=== PATIENT | female | born 1955 | race Caucasian/White ===

== ENCOUNTER 2016-10-29 06:54 | Observation (INO) ==
[2016-10-29] MEDS ORDERED: 0.9 % Sodium Chloride 1,000 ML IVC ONE (07:14)
[2016-10-29] MEDS ORDERED: *HR* LORazepam 2 MG/ML VIAL IVP ONE (07:14)
[2016-10-29] MEDS ORDERED: Ipratropium/Albuterol Neb 3 ML IH ONE (07:14)
[2016-10-29] MEDS ORDERED: Aspirin 81 MG TAB.CHEW PO STA (07:14)
[2016-10-29] MEDS ORDERED: Nitroglycerin 0.4 MG TAB.SUBL SL ONE (07:16)
[2016-10-29 07:22] LABS: Basophils # 0.1 K/mcL (0.0-0.2); Basophils % 0.9 %; Eosinophils # 0.3 K/mcL (0.0-0.6); Eosinophils % 3.2 %; Hematocrit 44.5 % (35.3-44.9); Hemoglobin 15.2 g/dL (11.5-15.4); Immature Granulocytes % 0.2 % (0-4); Lymphocytes # 1.7 K/mcL (0.6-4.6); Lymphocytes % 20.7 %; Mean Corpuscular HGB Conc 34.2 g/dL (31.6-35.5); Mean Corpuscular Volume 93.7 fL (83.0-100.0); Monocytes # 0.7 K/mcL (0.0-1.3); Neutrophils # 5.5 K/mcL (1.6-8.9); Platelet Count 355 K/mcL (140-400); Red Blood Count 4.75 M/mcL (3.82-4.97); Red Cell Distribution Width 12.6 % (11.5-14.5)
--- NOTE | 2016-10-29 07:31 | Emergency Department Note ---
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 Denies: fever, wheezing, orthopnea, lower extremity pain, palpitations, hemoptysis, diaphoresis, nausea/ vomiting, syncope, abdominal pain, rash Treatment prior to arrival: none Cough present: Yes Cough Description: Voluntary, Productive Cough Frequency: Intermittent Sputum production: Yes Sputum Amount: Scant Sputum Color: Yellow - Related Data Home oxygen amount: none Home Medications Medication Instructions Recorded Confirmed Clopidogrel [Plavix] 75 mg PO DAILY 10/17/15 10/29/16 Acetaminophen [Tylenol] 500 - 1,000 mg PO BID 10/29/16 10/29/16 Allergies Allergy/AdvReac Type Severity Reaction Status Date / Time No Known Allergies Allergy Verified 10/29/16 06:56 All systems ED: reviewed and negative except as stated. Constitutional: Denies: fever, chills, weakness, night sweats ENT ED: Reports: throat pain ("feels dry and strange like I'm going to swallow my tongue"). Denies: dental pain, congestion, dysphagia Cardiovascular: Reports: as per HPI, chest pain, dyspnea on exertion. Denies: palpitations, orthopnea, edema, syncope Respiratory: Reports: as per HPI, cough, dyspnea, sputum production. Denies: wheezes, hemoptysis, stridor Gastrointestinal: Denies: abdominal pain, nausea, vomiting, diarrhea Genitourinary: Denies: dysuria Musculoskeletal: Denies: back pain, neck pain, arthralgia Integumentary: Denies: rash, lesions Neurological: Reports: weakness ("weak all over"), numbness, paresthesias (left hand - this morning - gone now). Denies: headache Psychiatric: Reports: anxiety ("always") Endocrine: Denies: heat or cold intolerance, polydipsia, polyuria Hematological/Lymphatic: Reports: easy bleeding (on plavix ), easy bruising Allergic/Immunologic: Denies: facial swelling, urticaria, itchy eyes Past Medical History - Past Medical History Attestation: Yes The following information was validated with the patient. Source: patient, obtained from family Medical history: Reports: hyperlipidemia, peripheral artery disease, other Surgical history: Reports: cholecystectomy, hysterectomy, other, LE stent (s) Psychiatric history: Reports: anxiety HANDKERCHIEF FOLDER history: Reports: no HANDKERCHIEF FOLDER history LMP comments: none - Social History Smoking Status: Current every day smoker Smokeless Tobacco Status: No Alcohol use: Reports: none Drug use: Reports: none Physical Exam - General Limitations: no limitations General appearance: alert, anxious - Head Head exam: normocephalic, other (singed eyebrows - left worse than right) - Eye Eye exam: Present: normal appearance, PERRL, other (singed eyebrows). Absent: scleral icterus, conjunctival injection, periorbital swelling - ENT ENT exam: mucous membranes dry (otherwise oralpharynx is normal) - Neck Neck exam: Present: normal inspection, full ROM, trachea midline. Absent: tenderness, meningismus, lymphadenopathy, thyromegaly - Chest Chest inspection: Present: normal inspection, symmetric chest wall rise - Respiratory Respiratory exam: Present: normal lung sounds bilaterally, respiratory distress (mild tachypnea), accessory muscle use. Absent: wheezes, stridor, prolonged expiratory phase - Cardiovascular Cardiovascular exam: Present: regular rate, normal rhythm, normal heart sounds. Absent: systolic murmur, diastolic murmur - Abdominal Exam Abdominal exam: Present: soft, Non-Tender. Absent: distention, guarding, rebound, rigidity - Extremities Exam Extremities exam: Present: normal inspection, full ROM, normal capillary refill. Absent: tenderness, pedal edema - Back Exam Back exam: Present: normal inspection, full ROM. Absent: tenderness - Neurological Exam Neurological exam: Present: alert, oriented X3, CN II-XII intact, normal gait - Psychiatric Psychiatric exam: Present: normal affect, anxious - Skin Skin exam: Present: warm, dry, intact, normal color Course Course Narrative: Patient presents with family member for evaluation of trouble breathing and chest pain. She is extremely anxious. She states that she has had a cough and mild shortness of breath for a couple of days but this morning upon waking she had significant trouble breathing and pain in the right upper chest and right side of neck. She also complains of numbness in left hand - now resolved, pain across chest into left shoulder, and a "hot feelinging in ears and side of head. " Patient's x-ray is normal. Troponin is normal. EKG is normal. She has not had a heart catheterization or stress test in the last five years. In fact, she denies ever having one and I cannot find one in our EMR. Her chest pain is exertional and associated with dyspnea. Her d-dimer is elevated, however, she has had elevated sugars in the past in the s and had a CTA done in November, which was normal. My suspicion for PE is very low. We will discuss the case with the hospitalist for admission for rule out ACS. Vital Signs Temperature 97.7 F 10/29/16 06:56 Pulse Rate 94 10/29/16 06:56 Respiratory Rate 24 10/29/16 06:56 Blood Pressure 163/79 10/29/16 06:56 O2 Sat by Pulse Oximetry 98 10/29/16 06:56 Temperature 98.1 F 10/29/16 18:52 Pulse Rate 72 10/29/16 18:52 Respiratory Rate 16 10/29/16 18:52 Blood Pressure 106/69 10/29/16 18:52 O2 Sat by Pulse Oximetry 96 10/29/16 18:52 Oxygen Delivery Oxygen Delivery Room Air Shortness of Breath/Dyspnea - Lab Data Result diagrams: 10/29/16 07:13 10/29/16 07:13 Lab Results 10/29/16 10/29/16 10/29/16 Range/Units 07:13 07:13 07:13 WBC 8.2 (4.3-11.1) K/mcL RBC 4.75 (3.82-4.97) M/mcL Hgb 15.2 (11.5-15.4) g/dL Hct 44.5 (35.3-44.9) % MCV 93.7 (83.0-100.0) fL MCH 32.0 (28.0-33.3) pg MCHC 34.2 (31.6-35.5) g/dL RDW 12.6 (11.5-14.5) % Plt Count 355 (140-400) K/mcL MPV 10.0 (9.4-12.4) fL Immature Gran % 0.2 (0-4) % Seg Neutrophils % 67.0 % Lymphocytes % 20.7 % Monocytes % 8.0 % Eosinophils % 3.2 % Basophils % 0.9 % Neutrophils # 5.5 (1.6-8.9) K/mcL Lymphocytes # 1.7 (0.6-4.6) K/mcL Monocytes # 0.7 (0.0-1.3) K/mcL Eosinophils # 0.3 (0.0-0.6) K/mcL Basophils # 0.1 (0.0-0.2) K/mcL PT 11.7 (9.4-12.1) Seconds INR 1.1 APTT 30.0 (26.0-36.0) Seconds D-Dimer 745 H (0-500) ng/mLFEU Sodium 142 (136-145) mEq/L Potassium 4.0 (3.5-4.5) mEq/L Chloride 110 H (98-109) mEq/L Carbon Dioxide 25 (19-29) mEq/L BUN 20 (7-20) mg/dL Creatinine 0.71 (0.57-1.11) mg/dL Est GFR ( Amer) > 60 (> 60) Est GFR (Non-Af Amer) > 60 (> 60) BUN/Creatinine Ratio 28 H (6-26) Glucose 114 H (70-99) mg/dL Est Mean Plasma Glucose mg/dl Hemoglobin A1c ( - 5.6) % Calculated Osmolality 297 (280-300) Calcium 9.7 (8.6-10.8) mg/dL Phosphorus 3.7 (2.3-4.7) mg/dL Magnesium 2.0 (1.6-2.6) mg/dL Total Bilirubin 0.6 (0.2-1.2) mg/dL Direct Bilirubin 0.2 (0.0-0.5) mg/dL Indirect Bilirubin 0.4 (0.0-1.2) mg/dL AST 26 (5-34) Units/L ALT 24 (0-55) Units/L Alkaline Phosphatase 114 (38-126) Units/L Troponin I (0-0.03) ng/mL B-Natriuretic Peptide (0-100) pg/mL Serum Total Protein 7.4 (6.0-8.3) g/dL Albumin 3.6 (3.5-5.0) g/dL Globulin 3.8 H (2.4-3.5) g/dL Albumin/Globulin Ratio 0.9 L (1.1-2.2) Triglycerides 105 (< 150) mg/dL Cholesterol 207 H (< 200) mg/dL LDL Cholesterol, Calc 142 H (0-99) mg/dL VLDL Cholesterol, Calc 21 (< 31) mg/dL HDL Cholesterol 44 (40-59) mg/dL Cholesterol/HDL Ratio 4.7 (0-4.9) TSH 1.659 (0.350-4.840) mcIU/mL Urine Color (Yellow) Urine Clarity (Clear) Urine pH (5.0-8.0) pH Units Ur Specific [place] (1.010-1.025) Urine Protein (Neg-Trace) mg/dL Urine Glucose (UA) (Normal) mg/dL Urine Ketones (Negative) mg/dL Urine Blood (Negative) Urine Nitrite (Negative) Urine Bilirubin (Negative) Urine Urobilinogen (Normal) mg/dL Ur Leukocyte Esterase (Negative) Ur Culture Indicated? (NO) Urine Opiates Screen (Zlejeh=918) ng/mL Ur Barbiturates Screen (Usscij=796) ng/mL Ur Phencyclidine Scrn (Cutoff=25) ng/mL Ur Amphetamines Screen (Zlbuae=9196) ng/mL U Benzodiazepines Scrn (Avaueg=424) ng/mL Urine Cocaine Screen (Cutoff= 300) ng/mL U Marijuana (THC) Screen (Cutoff = 50) ng/mL 10/29/16 10/29/16 10/29/16 Range/Units 07:13 07:13 07:13 WBC (4.3-11.1) K/mcL RBC (3.82-4.97) M/mcL Hgb (11.5-15.4) g/dL Hct (35.3-44.9) % MCV (83.0-100.0) fL MCH (28.0-33.3) pg MCHC (31.6-35.5) g/dL RDW (11.5-14.5) % Plt Count (140-400) K/mcL MPV (9.4-12.4) fL Immature Gran % (0-4) % Seg Neutrophils % % Lymphocytes % % Monocytes % % Eosinophils % % Basophils % % Neutrophils # (1.6-8.9) K/mcL Lymphocytes # (0.6-4.6) K/mcL Monocytes # (0.0-1.3) K/mcL Eosinophils # (0.0-0.6) K/mcL Basophils # (0.0-0.2) K/mcL PT (9.4-12.1) Seconds INR APTT (26.0-36.0) Seconds D-Dimer (0-500) ng/mLFEU Sodium (136-145) mEq/L Potassium (3.5-4.5) mEq/L Chloride (98-109) mEq/L Carbon Dioxide (19-29) mEq/L BUN (7-20) mg/dL Creatinine (0.57-1.11) mg/dL Est GFR ( Amer) (> 60) Est GFR (Non-Af Amer) (> 60) BUN/Creatinine Ratio (6-26) Glucose (70-99) mg/dL Est Mean Plasma Glucose 114 mg/dl Hemoglobin A1c 5.6 ( - 5.6) % Calculated Osmolality (280-300) Calcium (8.6-10.8) mg/dL Phosphorus (2.3-4.7) mg/dL Magnesium (1.6-2.6) mg/dL Total Bilirubin (0.2-1.2) mg/dL Direct Bilirubin (0.0-0.5) mg/dL Indirect Bilirubin (0.0-1.2) mg/dL AST (5-34) Units/L ALT (0-55) Units/L Alkaline Phosphatase (38-126) Units/L Troponin I 0.01 (0-0.03) ng/mL B-Natriuretic Peptide 13 (0-100) pg/mL Serum Total Protein (6.0-8.3) g/dL Albumin (3.5-5.0) g/dL Globulin (2.4-3.5) g/dL Albumin/Globulin Ratio (1.1-2.2) Triglycerides (< 150) mg/dL Cholesterol (< 200) mg/dL LDL Cholesterol, Calc (0-99) mg/dL VLDL Cholesterol, Calc (< 31) mg/dL HDL Cholesterol (40-59) mg/dL Cholesterol/HDL Ratio (0-4.9) TSH (0.350-4.840) mcIU/mL Urine Color (Yellow) Urine Clarity (Clear) Urine pH (5.0-8.0) pH Units Ur Specific [place] (1.010-1.025) Urine Protein (Neg-Trace) mg/dL Urine Glucose (UA) (Normal) mg/dL Urine Ketones (Negative) mg/dL Urine Blood (Negative) Urine Nitrite (Negative) Urine Bilirubin (Negative) Urine Urobilinogen (Normal) mg/dL Ur Leukocyte Esterase (Negative) Ur Culture Indicated? (NO) Urine Opiates Screen (Vzlfya=858) ng/mL Ur Barbiturates Screen (Rehfah=711) ng/mL Ur Phencyclidine Scrn (Cutoff=25) ng/mL Ur Amphetamines Screen (Akfflw=7826) ng/mL U Benzodiazepines Scrn (Ehhupx=130) ng/mL Urine Cocaine Screen (Cutoff= 300) ng/mL U Marijuana (THC) Screen (Cutoff = 50) ng/mL 10/29/16 10/29/16 Range/Units 07:55 07:55 WBC (4.3-11.1) K/mcL RBC (3.82-4.97) M/mcL Hgb (11.5-15.4) g/dL Hct (35.3-44.9) % MCV (83.0-100.0) fL MCH (28.0-33.3) pg MCHC (31.6-35.5) g/dL RDW (11.5-14.5) % Plt Count (140-400) K/mcL MPV (9.4-12.4) fL Immature Gran % (0-4) % Seg Neutrophils % % Lymphocytes % % Monocytes % % Eosinophils % % Basophils % % Neutrophils # (1.6-8.9) K/mcL Lymphocytes # (0.6-4.6) K/mcL Monocytes # (0.0-1.3) K/mcL Eosinophils # (0.0-0.6) K/mcL Basophils # (0.0-0.2) K/mcL PT (9.4-12.1) Seconds INR APTT (26.0-36.0) Seconds D-Dimer (0-500) ng/mLFEU Sodium (136-145) mEq/L Potassium (3.5-4.5) mEq/L Chloride (98-109) mEq/L Carbon Dioxide (19-29) mEq/L BUN (7-20) mg/dL Creatinine (0.57-1.11) mg/dL Est GFR ( Amer) (> 60) Est GFR (Non-Af Amer) (> 60) BUN/Creatinine Ratio (6-26) Glucose (70-99) mg/dL Est Mean Plasma Glucose mg/dl Hemoglobin A1c ( - 5.6) % Calculated Osmolality (280-300) Calcium (8.6-10.8) mg/dL Phosphorus (2.3-4.7) mg/dL Magnesium (1.6-2.6) mg/dL Total Bilirubin (0.2-1.2) mg/dL Direct Bilirubin (0.0-0.5) mg/dL Indirect Bilirubin (0.0-1.2) mg/dL AST (5-34) Units/L ALT (0-55) Units/L Alkaline Phosphatase (38-126) Units/L Troponin I (0-0.03) ng/mL B-Natriuretic Peptide (0-100) pg/mL Serum Total Protein (6.0-8.3) g/dL Albumin (3.5-5.0) g/dL Globulin (2.4-3.5) g/dL Albumin/Globulin Ratio (1.1-2.2) Triglycerides (< 150) mg/dL Cholesterol (< 200) mg/dL LDL Cholesterol, Calc (0-99) mg/dL VLDL Cholesterol, Calc (< 31) mg/dL HDL Cholesterol (40-59) mg/dL Cholesterol/HDL Ratio (0-4.9) TSH (0.350-4.840) mcIU/mL Urine Color Yellow (Yellow) Urine Clarity Clear (Clear) Urine pH 5.5 (5.0-8.0) pH Units Ur Specific [place] 1.020 (1.010-1.025) Urine Protein Negative (Neg-Trace) mg/dL Urine Glucose (UA) Normal (Normal) mg/dL Urine Ketones Negative (Negative) mg/dL Urine Blood Negative (Negative) Urine Nitrite Negative (Negative) Urine Bilirubin Negative (Negative) Urine Urobilinogen Normal (Normal) mg/dL Ur Leukocyte Esterase Negative (Negative) Ur Culture Indicated? NO (NO) Urine Opiates Screen Negative (Iurohl=406) ng/mL Ur Barbiturates Screen Negative (Yfkeqx=089) ng/mL Ur Phencyclidine Scrn Negative (Cutoff=25) ng/mL Ur Amphetamines Screen Negative (Sqiuub=8987) ng/mL U Benzodiazepines Scrn Negative (Awqqkf=924) ng/mL Urine Cocaine Screen Negative (Cutoff= 300) ng/mL U Marijuana (THC) Screen Negative (Cutoff = 50) ng/mL
[2016-10-29 07:33] LABS: INR 1.1; Prothrombin Time 11.7 Seconds (9.4-12.1)
[2016-10-29 07:36] LABS: Alanine Aminotransferase 24 Units/L (0-55); Albumin 3.6 g/dL (3.5-5.0); Albumin/Globulin Ratio 0.9 (1.1-2.2); Alkaline Phosphatase 114 Units/L (38-126); Aspartate Amino Transferase 26 Units/L (5-34); BUN/Creatinine Ratio 28 (6-26); Bilirubin,Direct 0.2 mg/dL (0.0-0.5); Bilirubin,Indirect 0.4 mg/dL (0.0-1.2); Bilirubin,Total 0.6 mg/dL (0.2-1.2); Blood Urea Nitrogen 20 mg/dL (7-20); Calcium 9.7 mg/dL (8.6-10.8); Carbon Dioxide 25 mEq/L (19-29); Chloride 110 mEq/L (98-109); Globulin 3.8 g/dL (2.4-3.5); Glucose 114 mg/dL (70-99); Osmolality,Calculated 297 (280-300); Sodium 142 mEq/L (136-145); Total Protein 7.4 g/dL (6.0-8.3); eGFR For African Americans > 60 (> 60); eGFR For Non-African Americans > 60 (> 60)
[2016-10-29 08:04] LABS: Bilirubin,Urine Negative (Negative); Blood,Urine Negative (Negative); Clarity,Urine Clear (Clear); Color,Urine Yellow (Yellow); Glucose,Urine (UA) Normal (Normal); Ketones,Urine Negative (Negative); Leukocyte Esterase,Urine Negative (Negative); Nitrite,Urine Negative (Negative); PH,Urine 5.5 pH Units (5.0-8.0); Protein,Urine Negative (Neg-Trace); Urobilinogen,Urine Normal (Normal)
[2016-10-29 08:33] LABS: Amphetamine Screen,Urine Negative ng/mL (Cutoff=1000); Barbiturate Screen,Urine Negative ng/mL (Cutoff=200); Benzodiazepines Screen,Urine Negative ng/mL (Cutoff=200); Cannabinoid Screen,Urine Negative ng/mL (Cutoff = 50); Cocaine Screen,Urine Negative ng/mL (Cutoff= 300); Opiate Screen,Urine Negative ng/mL (Cutoff=300); Phencyclidine Screen,Urine Negative ng/mL (Cutoff=25)
--- NOTE | 2016-10-29 08:52 | Emergency Department Note ---
Disposition Clinical Impression: Acute exacerbation of chronic obstructive airways disease Disposition: Admitted As Inpatient Condition: Fair Referrals: NO,PCP [Non-Partnered Physician] - Forms: ED Satisfaction Letter General Adult HPI - General Chief complaint: ED Shortness of Breath/Dyspnea Stated complaint: luz/pain all over Source: patient, family Mode of arrival: private vehicle Limitations: no limitations Nursing Notes Reviewed: Yes Vital Signs Reviewed: Yes - History of Present Illness Pain Scale: 8 - Related Data Home Medications Medication Instructions Recorded Confirmed Clopidogrel [Plavix] 75 mg PO DAILY 10/17/15 10/29/16 Acetaminophen [Tylenol] 500 - 1,000 mg PO BID 10/29/16 10/29/16 Allergies Allergy/AdvReac Type Severity Reaction Status Date / Time No Known Allergies Allergy Verified 10/29/16 06:56 Constitutional: Denies: fever, chills, weakness, night sweats ENT ED: Reports: throat pain ("feels dry and strange like I'm going to swallow my tongue"). Denies: dental pain, congestion, dysphagia Cardiovascular: Reports: as per HPI, chest pain, dyspnea on exertion. Denies: palpitations, orthopnea, edema, syncope Respiratory: Reports: as per HPI, cough, dyspnea, sputum production. Denies: wheezes, hemoptysis, stridor Gastrointestinal: Denies: abdominal pain, nausea, vomiting, diarrhea Genitourinary: Denies: dysuria Musculoskeletal: Denies: back pain, neck pain, arthralgia Integumentary: Denies: rash, lesions Neurological: Reports: weakness ("weak all over"), numbness, paresthesias (left hand - this morning - gone now). Denies: headache Psychiatric: Reports: anxiety ("always") Endocrine: Denies: heat or cold intolerance, polydipsia, polyuria Hematological/Lymphatic: Reports: easy bleeding (on plavix ), easy bruising Allergic/Immunologic: Denies: facial swelling, urticaria, itchy eyes Past Medical History - Past Medical History Medical history: Reports: hyperlipidemia, peripheral artery disease, other Surgical history: Reports: cholecystectomy, hysterectomy, other, LE stent (s) Psychiatric history: Reports: anxiety NAIL PROFESSIONAL history: Reports: no NAIL PROFESSIONAL history - Social History Smoking Status: Current every day smoker Smokeless Tobacco Status: No Alcohol use: Reports: none Drug use: Reports: none Physical Exam - General Limitations: no limitations General appearance: alert, anxious Course Vital Signs Temperature 97.7 F 10/29/16 06:56 Pulse Rate 94 10/29/16 06:56 Respiratory Rate 24 10/29/16 06:56 Blood Pressure 163/79 10/29/16 06:56 O2 Sat by Pulse Oximetry 98 10/29/16 06:56 Temperature 97.7 F 10/29/16 06:56 Pulse Rate 75 10/29/16 09:13 Respiratory Rate 22 10/29/16 09:13 Blood Pressure 124/71 10/29/16 09:13 O2 Sat by Pulse Oximetry 97 10/29/16 09:13 Oxygen Delivery Oxygen Delivery Room Air Medical Decision Making - MDM Narrative Medical decision making narrative: I examined this patient and my medical decision-making was reviewed with the PATIENT COMPANION/PA/Advanced Practice Nurse/Resident Physician. I agree with the documented findings, disposition and treatment plan as described except to the extent set forth below. Patient was evaluated by Mariela Ramirez, the physician's administrative services assistant and myself, I agree with her evaluation management plan. Patient presents today with increased dyspnea and some chest discomfort. Has a history of elevated d-dimer in the past with a negative CTA. We decided to hold off on the CTA even though her d-dimer was elevated today. After speaking with the hospitalist they wanted the CTA which was done and is negative. She is to come into the hospital for admission at this time. She is doing much better at this time. But still requires admission. Patient's in agreement with this plan. Chest X-Ray 10/29/16 07:14 IMPRESSION: No acute process. D/ / Donald Bowie MD / Donald Bowie MD Interpreting Provider: Donald oBwie MD Chest CTA 10/29/16 08:32 IMPRESSION: 1. No acute pulmonary artery embolism. 2. Right middle lobe and lingular atelectasis. D/ / 10/29/2016 09:56:57 Donald Bowie MD / [place] Interpreting Provider: Donald Bowie MD - Lab Data Result diagrams: 10/29/16 07:13 12/31/16 07:13 Lab Results 10/29/16 10/29/16 10/29/16 Range/Units 07:13 07:13 07:13 WBC 8.2 (4.3-11.1) K/mcL RBC 4.75 (3.82-4.97) M/mcL Hgb 15.2 (11.5-15.4) g/dL Hct 44.5 (35.3-44.9) % MCV 93.7 (83.0-100.0) fL MCH 32.0 (28.0-33.3) pg MCHC 34.2 (31.6-35.5) g/dL RDW 12.6 (11.5-14.5) % Plt Count 355 (140-400) K/mcL MPV 10.0 (9.4-12.4) fL Immature Gran % 0.2 (0-4) % Seg Neutrophils % 67.0 % Lymphocytes % 20.7 % Monocytes % 8.0 % Eosinophils % 3.2 % Basophils % 0.9 % Neutrophils # 5.5 (1.6-8.9) K/mcL Lymphocytes # 1.7 (0.6-4.6) K/mcL Monocytes # 0.7 (0.0-1.3) K/mcL Eosinophils # 0.3 (0.0-0.6) K/mcL Basophils # 0.1 (0.0-0.2) K/mcL PT 11.7 (9.4-12.1) Seconds INR 1.1 APTT 30.0 (26.0-36.0) Seconds D-Dimer 745 H (0-500) ng/mLFEU Sodium 142 (136-145) mEq/L Potassium 4.0 (3.5-4.5) mEq/L Chloride 110 H (98-109) mEq/L Carbon Dioxide 25 (19-29) mEq/L BUN 20 (7-20) mg/dL Creatinine 0.71 (0.57-1.11) mg/dL Est GFR ( Amer) > 60 (> 60) Est GFR (Non-Af Amer) > 60 (> 60) BUN/Creatinine Ratio 28 H (6-26) Glucose 114 H (70-99) mg/dL Calculated Osmolality 297 (280-300) Calcium 9.7 (8.6-10.8) mg/dL Magnesium 2.0 (1.6-2.6) mg/dL Total Bilirubin 0.6 (0.2-1.2) mg/dL Direct Bilirubin 0.2 (0.0-0.5) mg/dL Indirect Bilirubin 0.4 (0.0-1.2) mg/dL AST 26 (5-34) Units/L ALT 24 (0-55) Units/L Alkaline Phosphatase 114 (38-126) Units/L Troponin I (0-0.03) ng/mL B-Natriuretic Peptide (0-100) pg/mL Serum Total Protein 7.4 (6.0-8.3) g/dL Albumin 3.6 (3.5-5.0) g/dL Globulin 3.8 H (2.4-3.5) g/dL Albumin/Globulin Ratio 0.9 L (1.1-2.2) TSH 1.659 (0.350-4.840) mcIU/mL Urine Color (Yellow) Urine Clarity (Clear) Urine pH (5.0-8.0) pH Units Ur Specific [place] (1.010-1.025) Urine Protein (Neg-Trace) mg/dL Urine Glucose (UA) (Normal) mg/dL Urine Ketones (Negative) mg/dL Urine Blood (Negative) Urine Nitrite (Negative) Urine Bilirubin (Negative) Urine Urobilinogen (Normal) mg/dL Ur Leukocyte Esterase (Negative) Ur Culture Indicated? (NO) Urine Opiates Screen (Orbmac=617) ng/mL Ur Barbiturates Screen (Svovay=502) ng/mL Ur Phencyclidine Scrn (Cutoff=25) ng/mL Ur Amphetamines Screen (Dqccky=4975) ng/mL U Benzodiazepines Scrn (Undftk=187) ng/mL Urine Cocaine Screen (Cutoff= 300) ng/mL U Marijuana (THC) Screen (Cutoff = 50) ng/mL 10/29/16 10/29/16 10/29/16 Range/Units 07:13 07:13 07:55 WBC (4.3-11.1) K/mcL RBC (3.82-4.97) M/mcL Hgb (11.5-15.4) g/dL Hct (35.3-44.9) % MCV (83.0-100.0) fL MCH (28.0-33.3) pg MCHC (31.6-35.5) g/dL RDW (11.5-14.5) % Plt Count (140-400) K/mcL MPV (9.4-12.4) fL Immature Gran % (0-4) % Seg Neutrophils % % Lymphocytes % % Monocytes % % Eosinophils % % Basophils % % Neutrophils # (1.6-8.9) K/mcL Lymphocytes # (0.6-4.6) K/mcL Monocytes # (0.0-1.3) K/mcL Eosinophils # (0.0-0.6) K/mcL Basophils # (0.0-0.2) K/mcL PT (9.4-12.1) Seconds INR APTT (26.0-36.0) Seconds D-Dimer (0-500) ng/mLFEU Sodium (136-145) mEq/L Potassium (3.5-4.5) mEq/L Chloride (98-109) mEq/L Carbon Dioxide (19-29) mEq/L BUN (7-20) mg/dL Creatinine (0.57-1.11) mg/dL Est GFR ( Amer) (> 60) Est GFR (Non-Af Amer) (> 60) BUN/Creatinine Ratio (6-26) Glucose (70-99) mg/dL Calculated Osmolality (280-300) Calcium (8.6-10.8) mg/dL Magnesium (1.6-2.6) mg/dL Total Bilirubin (0.2-1.2) mg/dL Direct Bilirubin (0.0-0.5) mg/dL Indirect Bilirubin (0.0-1.2) mg/dL AST (5-34) Units/L ALT (0-55) Units/L Alkaline Phosphatase (38-126) Units/L Troponin I 0.01 (0-0.03) ng/mL B-Natriuretic Peptide 13 (0-100) pg/mL Serum Total Protein (6.0-8.3) g/dL Albumin (3.5-5.0) g/dL Globulin (2.4-3.5) g/dL Albumin/Globulin Ratio (1.1-2.2) TSH (0.350-4.840) mcIU/mL Urine Color Yellow (Yellow) Urine Clarity Clear (Clear) Urine pH 5.5 (5.0-8.0) pH Units Ur Specific [place] 1.020 (1.010-1.025) Urine Protein Negative (Neg-Trace) mg/dL Urine Glucose (UA) Normal (Normal) mg/dL Urine Ketones Negative (Negative) mg/dL Urine Blood Negative (Negative) Urine Nitrite Negative (Negative) Urine Bilirubin Negative (Negative) Urine Urobilinogen Normal (Normal) mg/dL Ur Leukocyte Esterase Negative (Negative) Ur Culture Indicated? NO (NO) Urine Opiates Screen (Xpurmb=596) ng/mL Ur Barbiturates Screen (Haigxo=788) ng/mL Ur Phencyclidine Scrn (Cutoff=25) ng/mL Ur Amphetamines Screen (Yubsqh=3543) ng/mL U Benzodiazepines Scrn (Zjrzgm=517) ng/mL Urine Cocaine Screen (Cutoff= 300) ng/mL U Marijuana (THC) Screen (Cutoff = 50) ng/mL 10/29/16 Range/Units 07:55 WBC (4.3-11.1) K/mcL RBC (3.82-4.97) M/mcL Hgb (11.5-15.4) g/dL Hct (35.3-44.9) % MCV (83.0-100.0) fL MCH (28.0-33.3) pg MCHC (31.6-35.5) g/dL RDW (11.5-14.5) % Plt Count (140-400) K/mcL MPV (9.4-12.4) fL Immature Gran % (0-4) % Seg Neutrophils % % Lymphocytes % % Monocytes % % Eosinophils % % Basophils % % Neutrophils # (1.6-8.9) K/mcL Lymphocytes # (0.6-4.6) K/mcL Monocytes # (0.0-1.3) K/mcL Eosinophils # (0.0-0.6) K/mcL Basophils # (0.0-0.2) K/mcL PT (9.4-12.1) Seconds INR APTT (26.0-36.0) Seconds D-Dimer (0-500) ng/mLFEU Sodium (136-145) mEq/L Potassium (3.5-4.5) mEq/L Chloride (98-109) mEq/L Carbon Dioxide (19-29) mEq/L BUN (7-20) mg/dL Creatinine (0.57-1.11) mg/dL Est GFR ( Amer) (> 60) Est GFR (Non-Af Amer) (> 60) BUN/Creatinine Ratio (6-26) Glucose (70-99) mg/dL Calculated Osmolality (280-300) Calcium (8.6-10.8) mg/dL Magnesium (1.6-2.6) mg/dL Total Bilirubin (0.2-1.2) mg/dL Direct Bilirubin (0.0-0.5) mg/dL Indirect Bilirubin (0.0-1.2) mg/dL AST (5-34) Units/L ALT (0-55) Units/L Alkaline Phosphatase (38-126) Units/L Troponin I (0-0.03) ng/mL B-Natriuretic Peptide (0-100) pg/mL Serum Total Protein (6.0-8.3) g/dL Albumin (3.5-5.0) g/dL Globulin (2.4-3.5) g/dL Albumin/Globulin Ratio (1.1-2.2) TSH (0.350-4.840) mcIU/mL Urine Color (Yellow) Urine Clarity (Clear) Urine pH (5.0-8.0) pH Units Ur Specific [place] (1.010-1.025) Urine Protein (Neg-Trace) mg/dL Urine Glucose (UA) (Normal) mg/dL Urine Ketones (Negative) mg/dL Urine Blood (Negative) Urine Nitrite (Negative) Urine Bilirubin (Negative) Urine Urobilinogen (Normal) mg/dL Ur Leukocyte Esterase (Negative) Ur Culture Indicated? (NO) Urine Opiates Screen Negative (Gdrkmb=906) ng/mL Ur Barbiturates Screen Negative (Cyxuts=916) ng/mL Ur Phencyclidine Scrn Negative (Cutoff=25) ng/mL Ur Amphetamines Screen Negative (Gkjwjl=3974) ng/mL U Benzodiazepines Scrn Negative (Qekgpu=448) ng/mL Urine Cocaine Screen Negative (Cutoff= 300) ng/mL U Marijuana (THC) Screen Negative (Cutoff = 50) ng/mL
[2016-10-29 09:01] LABS: Thyroid Stimulating Hormone 1.659 mcIU/mL (0.350-4.840)
[2016-10-29] MEDS ORDERED: Acetaminophen 325 MG TABLET PO PRN (11:20)
[2016-10-29] MEDS ORDERED: Naloxone 0.4 MG/ML INJ IVP PRN (11:20)
[2016-10-29] MEDS ORDERED: Ondansetron 4 MG/2 ML VIAL IVP PRN (11:20)
[2016-10-29] MEDS ORDERED: *HR* HYDROcodone/Acet 5/325 mg TABLET PO PRN (11:20)
--- NOTE | 2016-10-29 11:41 | Internal Med History&Physical ---
<Gutierrez Harrison - Last Filed: 10/29/16 11:37> Date of Encounter: 10/29/16 Time of Encounter: 10:30 Assessment and Plan (1) Chest pain Current visit: Yes Status: Acute Patient complains of generalized chest pain. She states up "pulling" sensation in her upper chest when moving her neck or arm. Reports burning all over her body. Reports occasional neck stiffness and neck pain. Reports "bubbling" in her right lower lung with inspiration, reports pain on inspiration in her left lung. Reports similar "bubbling" in her head on inspiration. Patient reports hip pain and pulling along with ear pain with flexion of right hip. Reports pain in her abdomen, diffusely. CTA was performed that was negative for pulmonary embolism, neck is supple with full range of motion and no lymphadenopathy, further mild tenderness to palpation of patient abdomen, lungs are clear to auscultation. Unlikely this event is cardiac in nature, but given patient history of peripheral artery disease, we will obtain echocardiogram and trend troponins. She does complain of recent shortness of breath and coughing up yellow-colored mucus, with prior note from her PCP that she reports having a "cold" in the last 2 days. This is likely viral in nature given patient has been afebrile, no leukocytosis, and has only persisted for a couple of days. Patient appears very anxious with evidence of traction alopecia and general demeanor appears slightly manic. We will continue to monitor Telemetry Trend troponins Obtain echocardiogram Continue Plavix [place] for patient pain Ativan for patient anxiety When necessary duo nebs for continued shortness of breath Tylenol for mild pain or fever Qualifiers: Chest pain type: unspecified Qualified Code(s): R07.9 - Chest pain, unspecified (2) Anxiety Current visit: Yes Status: Acute Patient appears very anxious, with many complaints. Recent outpatient documentation suggests that the majority of her complaints are chronic. There is evidence of traction alopecia, patient reports anxiety, patient appears very anxious. We will give when necessary Ativan Continue monitor Consider psychiatry consult when available (3) URI (upper respiratory infection) Current visit: Yes Status: Acute Patient reports 3 or 4 days increasing shortness of breath with cough that is occasionally productive of yellow mucus. She called her PCP on 10/27/16 he told her to be seen in urgent care if she thought she needed antibiotics. Because of recent nature of respiratory infection, no leukocytosis, patient afebrile, this is likely viral in nature We will continue to monitor Supportive care with Tylenol for fever and duo nebs when necessary We will hold antibiotics currently, but will consider antibiotics if worsening shortness of breath, cough, fever, or leukocytosis (4) PAD (peripheral artery disease) Current visit: No Status: Acute Continue home Plavix (5) DVT prophylaxis Current visit: No Status: Acute 5000 units heparin subcutaneous twice a day Internal Medicine - H&P: HPI Chief complaint: Pain all over and shortness of breath Admitted From: Home Plans for Post Hospital Care: Home History of present illness: Ms. Ramesh is a 61 year old female with prior medical history of hyperlipidemia and peripheral artery disease presents to deal with multiple complaints including shortness of breath and cough for 3-4 days. She reports pain all over, burning all over, and pain in apparent not contiguous parts of her body with motion. She reports the burning sensation all over her body as well as a "pulling" sensation in her upper chest when moving her neck or arm. Reports occasional neck stiffness and neck pain. Reports "bubbling" in her right lower lung with inspiration, reports pain on inspiration in her left lung. Reports similar "bubbling" in her head on inspiration. Patient reports hip pain and pulling along with ear pain with flexion of right hip. Reports pain in her abdomen, diffusely. She reports that most of the pain she is having in her body has persisted for over a year, but the results she came to the ER today was because of the shortness of breath. She states that when she woke up this morning she was short of breath became lightheaded. She states that the last 3-4 days she has had increased shortness of breath and cough productive of yellow mucus occasionally. She denies fever or chills. She reports that she was treated for a UTI 2-3 weeks ago. Her first antibiotic caused her to have nausea and vomiting. Her antibiotic was switched she reports having a total of 8 days of antibiotics through the first and second antibiotics that she received. Past Med Surg Social Fam HX - Past Medical History Medical history: hyperlipidemia, peripheral artery disease, other Psychiatric history: anxiety - Past Surgical History Surgical History: cholecystectomy, hysterectomy, other, LE stent (s) - Social History Smoking Status: Current every day smoker Packs per day: 1 Smokeless Tobacco Status: No Alcohol use: none Drug use: none - Family History Mother Living Status: Father Living Status: Hx Family Cardiac Disorders: Yes ([place]) Hx Family Neurologic Disorders: Yes Internal Medicine - H&P: Meds Clopidogrel [Plavix] 75 mg PO DAILY 10/17/15 [History] Acetaminophen [Tylenol] 500 - 1,000 mg PO BID 10/29/16 [History] Allergies No Known Allergies Allergy (Verified 10/29/16 06:56) - Constitutional Constitutional: no chills, no fatigue, no fever(s), no weakness - EENT Eyes: no discharge, no pain, no photophobia Nose, mouth and throat: mouth pain, neck pain, tongue swelling, no dental pain, no dry mouth, no hoarseness, no sore throat - Cardiovascular Cardiovascular ROS IM: chest pain, dyspnea, lightheadedness, no diaphoresis, no dyspnea on exertion, no edema, no orthopnea, no palpitations - Respiratory Respiratory: cough, pain on inspiration, change in phlegm color, no hemoptysis, no dyspnea on exertion, no wheezing - Gastrointestinal Gastrointestinal: abdominal pain, no constipation, no diarrhea, no hematochezia , no nausea (2 weeks ago with antibiotic), no vomiting (2 weeks ago with antibiotic) - Genitourinary Genitourinary: dysuria (occasional), no change in urinary stream, no flank pain , no hematuria - Musculoskeletal Musculoskeletal ROS IM: arthralgias (in hips and shoulders), neck pain, stiffness, no numbness, no tingling - Integumentary Integumentary IM: no erythema, no pruritus, no rash - Neurological Neurological ROS: burning sensations (all over body), dizziness, headache(s), no loss of vision, no numbness, no tingling, no vertigo, no weakness - Psychiatric Psychiatric: anxiety - Allergic/Immunologic Allergic/Immunologic: tongue swelling - Constitutional Vitals: Temp Pulse Resp BP Pulse Ox 97.6 F 62 16 144/71 97 10/29/16 11:26 10/29/16 11:26 10/29/16 11:26 10/29/16 11:26 10/29/16 11:26 General appearance: Present: cooperative, A&O X 2, pleasant, no acute distress - Head Head exam: Present: atraumatic, normocephalic. Absent: normal inspection ( evidence of traction allopecia) - Eye Eye exam: Present: PERRL, conjuntiva pink, sclera anicteric Pupils: Present: PERRL - ENT ENT exam: Present: mucous membranes moist, normal exam, normal oropharynx - Expanded ENT Exam Mouth exam: Present: moist, tongue normal. Absent: tongue hypertrophy - Neck Neck exam general surgery: Present: full ROM (reports pain with full extension) , normal inspection, supple, trachea midline. Absent: lymphadenopathy, tenderness, nuchal rigidity - Respiratory Respiratory exam: Present: CTAB. Absent: accessory muscle use, rales, rhonchi, wheezes - Cardiovascular Cardiovascular exam: Present: RRR, +S1, +S2. Absent: diastolic murmur, gallop, rubs, systolic murmur - GI/Abdominal GI/Abdominal exam: Present: normal bowel sounds, soft, tenderness (mild, diffuse ), no peritoneal signs. Absent: distended - Extremities Exam Extremities exam: Present: warm, radial pulses palpable and symetrical. Absent : calf tenderness, cyanotic, pedal edema - Neurological Exam Neurological exam: Present: alert, no focal deficits. Absent: oriented X3 ( oriented x2), facial droop, speech deficit - Psychiatric Psychiatric exam: Present: anxious - Skin Skin exam: Present: dry, intact Internal Med - H&P Results - Labs CBC & Chem 7: 10/29/16 07:13 10/29/16 07:13 <Jason Juan - Last Filed: 10/29/16 18:09> Date of Encounter: 10/29/16 Internal Medicine - H&P: HPI History of present illness: Ms. Ramesh is a 61 year old female All Systems PM: A 10-system review of systems was performed and is negative for pertinent findings except as documented above in the HPI. - Constitutional Vitals: Temp Pulse Resp BP Pulse Ox 98.0 F 71 18 105/61 95 10/29/16 15:36 10/29/16 15:36 10/29/16 15:36 10/29/16 15:36 10/29/16 15:36 Internal Med - H&P Results - Labs CBC & Chem 7: 10/29/16 07:13 10/29/16 07:13 Labs: Cardiac Enzymes 10/29/16 Range/Units 13:42 Troponin I 0.01 (0-0.03) ng/mL - Attending Attestation I have seen and examined this patient independently. I have discussed the case with the resident, Dr. Harrison. I agree with the data gathering in the HPI, physical examination findings, assessment and plan as documented by the resident. Atypical chest pain, will trend trops. Psych component. The plan of care was discussed in detail with the patient, she expressed understanding.
[2016-10-29] MEDS ORDERED: *HR* LORazepam 2 MG/ML VIAL IVP PRN (12:01)
[2016-10-29 12:37] LABS: Phosphorous 3.7 mg/dL (2.3-4.7)
[2016-10-29 12:53] LABS: Chol/HDL Ratio 4.7 (0-4.9); Cholesterol 207 mg/dL (< 200); HDL Cholesterol 44 mg/dL (40-59); LDL Cholesterol,Calculated 142 mg/dL (0-99); Triglycerides 105 mg/dL (< 150)
[2016-10-29 13:05] LABS: Hemoglobin A1C 5.6 %
[2016-10-29] MEDS: Nicotine 14 MG PATCH.TD24 TD SCH (15:44)
[2016-10-29] MEDS: Ipratropium/Albuterol Neb 3 ML IH SCH ×2 (16:22→21:42)
[2016-10-29] MEDS: *HR* Heparin 5,000 UNIT/ML VIAL SQ SCH (18:03)
[2016-10-29] MEDS ORDERED: Sennosides/Docusate Sodium TABLET PO PRN (21:00)
[2016-10-30 03:54] LABS: Basophils % 0.5 %; Eosinophils # 0.3 K/mcL (0.0-0.6); Eosinophils % 4.3 %; Hematocrit 38.6 % (35.3-44.9); Immature Granulocytes % 0.3 % (0-4); Lymphocytes # 2.1 K/mcL (0.6-4.6); Lymphocytes % 25.8 %; Mean Corpuscular HGB Conc 33.9 g/dL (31.6-35.5); Mean Corpuscular Hemoglobin 32.1 pg (28.0-33.3); Mean Corpuscular Volume 94.6 fL (83.0-100.0); Mean Platelet Volume 10.2 fL (9.4-12.4); Monocytes # 0.7 K/mcL (0.0-1.3); Monocytes % 9.1 %; Neutrophils # 4.8 K/mcL (1.6-8.9); Platelet Count 311 K/mcL (140-400); Red Blood Count 4.08 M/mcL (3.82-4.97); Red Cell Distribution Width 12.8 % (11.5-14.5)
[2016-10-30] MEDS: Ipratropium/Albuterol Neb 3 ML IH SCH ×3 (03:56→16:40)
[2016-10-30 03:57] LABS: Hemoglobin 13.1 g/dL (11.5-15.4)
[2016-10-30 04:16] LABS: Alanine Aminotransferase 24 Units/L (0-55); Albumin 3.1 g/dL (3.5-5.0); Alkaline Phosphatase 100 Units/L (38-126); Aspartate Amino Transferase 27 Units/L (5-34); BUN/Creatinine Ratio 23 (6-26); Bilirubin,Direct 0.2 mg/dL (0.0-0.5); Bilirubin,Indirect 0.2 mg/dL (0.0-1.2); Bilirubin,Total 0.4 mg/dL (0.2-1.2); Blood Urea Nitrogen 16 mg/dL (7-20); Calcium 9.2 mg/dL (8.6-10.8); Carbon Dioxide 27 mEq/L (19-29); Chloride 110 mEq/L (98-109); Globulin 3.1 g/dL (2.4-3.5); Glucose 105 mg/dL (70-99); Osmolality,Calculated 298 (280-300); Potassium 4.5 mEq/L (3.5-4.5); Sodium 143 mEq/L (136-145); Total Protein 6.2 g/dL (6.0-8.3); eGFR For African Americans > 60 (> 60); eGFR For Non-African Americans > 60 (> 60)
[2016-10-30] MEDS: Acetaminophen 325 MG TABLET PO PRN ×2 (06:04→12:50)
[2016-10-30] MEDS: *HR* Heparin 5,000 UNIT/ML VIAL SQ SCH (06:04)
--- NOTE | 2016-10-30 08:20 | ECHO - Doppler Report ---
Echocardiogram Name: Michelle Ramesh Date of Study: 10/29/2016 Date: 1955 Ht: 63.0 in Medical Record#: [id number] Age: 61 Wt: 121.0 lb Gender: Female BSA: 1.56 Order #: [id number] Location: [facility] Room #: 3B16 Reading Physician: Jameson Lindsey MD, [facility] Floor Cleaner: MARTIN Layton, S Ordering Physician: Gutierrez Harrison DO Primary Physician: Osmar Patel DO Indications: Chest pain, Shortness of breath Impressions: Normal left ventricular size and systolic function, LVEF 65-70%. Normal left ventricular diastolic function. Normal right ventricular size and function. No significant valvular dysfunction. Unable to estimate RVSP due to lack of TR jet. Left Ventricular Wall Motion: Rest Echo Findings All wall segments showed normal motion. Findings: Study Quality * Technically adequate exam. ECG Findings * Normal sinus rhythm. Left Ventricle * Normal left ventricular size and systolic function, LVEF 65-70%. * Normal LV wall thickness. * Normal left ventricular diastolic function. Right Ventricle * Normal right ventricular size and function. Left Atrium * Normal left atrial size. Right Atrium * Normal right atrial size. Aorta * Normally sized aortic root. Pericardium * There is no pericardial effusion present. IVC * Normal IVC dimensions and inspiratory collapse. Aortic Valve * Aortic valve not well visualized. * Normal aortic valve function. Mitral Valve * Normal mitral valve structure. * Normal mitral valve function. Tricuspid Valve * Normal tricuspid valve structure. * Normal tricuspid valve function. * Unable to estimate RVSP due to lack of TR jet. Pulmonic Valve * Pulmonic valve not well visualized. * Normal pulmonic valve function. History Hypercholesteremia History of Smoking Years 33 Packs 0.5 Family History of CAD 10/17/2015 a Previous Echo was performed. Measurements: BP: 144/ 71 2D Normal Values RVIDd: 2.70 cm IVSd: .60 cm 0.6 - 1.0 cm LVIDd: 5.00 cm 3.7 - 5.6 cm LVPWd: .60 cm 0.6 - 1.1 cm LVIDs: 3.00 cm 1.5 - 3.6 cm AO: 2.60 cm < 4.0 cm %FS: 40.00 cm >25 % LA volume: 19 Mitral Valve Peak E:.81 m/sec Peak A:.82 m/sec E/A Ratio:1 Updated by Jameson Lindsey MD, [facility] on 10/30/2016 8:11:50 AM electronically signed on 10/30/2016 8:15:56 AM with status of Final Wall Motion Turner: 1=Normal, 2=Hypokinesis, 3=Akinesis, 4=Dyskinesis, 5=Aneurysmal, 6=Hyperkinetic, X=Not Visualized (Blank)=Missing
[2016-10-30] MEDS: Nicotine 14 MG PATCH.TD24 TD SCH (08:44)
[2016-10-30] MEDS ORDERED: Pantoprazole 40 MG VIAL IVP SCH (09:00)
[2016-10-30] MEDS ORDERED: predniSONE 20 MG TABLET PO SCH (10:30)
--- NOTE | 2016-10-30 13:20 | Discharge Summary ---
Date of Encounter: 11/03/16 Time of Encounter: 13:00 - Discharge Diagnosis (1) Atypical chest pain Priority: Primary Status: Acute (2) Back pain Priority: Primary Status: Acute Qualifiers: Back pain location: back pain in unspecified location Chronicity: unspecified Back pain laterality: unspecified Qualified Code(s): M54.9 - Dorsalgia, unspecified (3) URI, acute Priority: Primary Status: Acute - Discharge Medications Prescriptions: Acetaminophen [Tylenol] 650 mg PO Q6HR PRN #40 tablet PRN Reason: Mild Pain (1-3) or fever>100.4 Cyclobenzaprine HCl 10 mg PO BID PRN #60 tablet PRN Reason: Muscle Spasm Loratadine [Claritin] 10 mg PO DAILY #30 tablet Nicotine Patch [Nicoderm] 14 mg TD DAILY #30 patch.td24 Polyethylene Glycol 3350 [MiraLAX] 17 gm PO DAILY PRN #30 powd.pack PRN Reason: Constipation Saline Nasal [place] [[place] Nasal [place]] 2 spray NS TID #3 bottle Sennosides/Docusate Sodium [Senna Plus] 1 each PO BID PRN #60 tablet PRN Reason: Constipation Home Medications: Clopidogrel [Plavix] 75 mg PO DAILY 10/17/15 [History] Acetaminophen [Tylenol] 500 - 1,000 mg PO BID 10/29/16 [History] Acetaminophen [Tylenol] 650 mg PO Q6HR PRN #40 tablet 10/30/16 [Rx] Cyclobenzaprine HCl 10 mg PO BID PRN #60 tablet 10/30/16 [Rx] Loratadine [Claritin] 10 mg PO DAILY #30 tablet 10/30/16 [Rx] Nicotine Patch [Nicoderm] 14 mg TD DAILY #30 patch.td24 10/30/16 [Rx] Polyethylene Glycol 3350 [MiraLAX] 17 gm PO DAILY PRN #30 powd.pack 10/30/16 [Rx ] Saline Nasal [place] [[place] Nasal [place]] 2 spray NS TID #3 bottle 10/30/16 [Rx] Sennosides/Docusate Sodium [Senna Plus] 1 each PO BID PRN #60 tablet 10/30/16 [ Rx] Allergies/Adverse Reactions: Allergies No Known Allergies Allergy (Verified 10/29/16 06:56) Procedures/tests Complete & Pending: Procedures Performed prior 72 hours Category Date Time Status EV echocardiogram Routine Y 10/29/16 11:20 Completed Date of admission: 10/29/16 10:33 Primary care physician: Osmar Patel DO Consults: 10/29/16 11:20 Consult to Nurse Navigator [CONS] Routine Comment: 10/29/16 11:28 Consult to Hairspring Adjuster [CONS] Routine Reason for SW Consult: Concern for patient resources as outpatient, patient likely needs psychiatric follow up. Combined services (or something like that)? 10/29/16 18:40 Consult to Psychiatry [CONS] Routine Consulting Provider: Azeem Hogan Reason for Consult: Concern for potential underlying psychiatric disorder. Call Completed: Yes Discharging clinician: Keren Enriquez - Patient Status Disposition: Home, Self-Care Condition: Fair Functional capacity at discharge: independent ambulation Overall status at discharge: patient is progressing back to baseline - Discharge Instructions Instructions: Chest Pain (DC), Chronic Obstructive Pulmonary Disease (DC), Anxiety (DC) Follow Up With: Osmar Patel DO [Primary Care Provider] - - Diet and Activity Activity: resume usual activities as tolerated Diet: regular diet Hospital course: Ms. Ramesh is a 61 year old female with prior medical history of hyperlipidemia and peripheral artery disease presented with multiple complaints including shortness of breath and cough for 3-4 days. She reported pain all over, burning all over, and pain in apparent not contiguous parts of her body with motion. She reports the burning sensation all over her chest worse with inspiration, patient was recently diagnosed with URI and treated with antibiotic as an outpatient. Patient was admitted to the hospital EKG no acute EKG changes. Cardiac enzymes were negative. Patient stated that she had a stress test done recently which was negative. Her chest pain was atypical most likely a viral syndrome. Symptomatic treatment was started include prednisone and the patient was given muscle relaxants and Tylenol. Patient has sinus pressure improving with saline nasal spray. Discussed with patient about her symptomss. Patient was anxious. Patient was reassured. Need to probably was from a doctor as an outpatient . Patient denies any suicidal or homicidal ideation, patient denies any hallucination or delusions.Plan of discharge discussed with patient, She agreed with discharge planning . Patient is to follow-up with cardiology as an outpatient. The documentation in the history of HPI and plan were at least partially created by DNA Direct recognition technology by Dr. Ramirez. Errors in grammar, wording or other phrases may exist. If errors are found after the documentation signed, they will be addressed individually in the addendum section of this document when appropriate. - Time Spent with Patient Total time spent providing and/or coordinating discharge services: Less than 30 minutes - Constitutional Vitals: Temp Pulse Resp BP Pulse Ox 97.8 F 78 15 125/76 94 L 10/30/16 11:55 10/30/16 11:55 10/30/16 11:55 10/30/16 11:55 10/30/16 11:55 General appearance: Present: cooperative, A&O X 2, pleasant, no acute distress - Head Head exam: Present: atraumatic, normocephalic - ENT ENT exam: Present: mucous membranes moist, normal external ear exam (Enlarged turbinate bilateral nostril) - Respiratory Respiratory exam: Present: decreased breath sounds, prolonged expiratory phase. Absent: accessory muscle use, rales, rhonchi, wheezes - Cardiovascular Cardiovascular exam: Present: RRR, +S1, +S2. Absent: diastolic murmur, gallop, rubs, systolic murmur - GI/Abdominal GI/Abdominal exam: Present: normal bowel sounds, soft, no peritoneal signs. Absent: distended, tenderness - Extremities Exam Extremities exam: Present: warm, radial pulses palpable and symetrical. Absent : calf tenderness, cyanotic, pedal edema - Back Exam Back exam: Present: muscle spasm (Paraspinal muscle tenderness C-spine) - Neurological Exam Neurological exam: Present: CN II-XII intact, oriented X3, no focal deficits. Absent: pronater drift, facial droop, speech deficit
[2016-10-30] MEDS ORDERED: Loratadine 10 MG TABLET PO SCH (13:30)
[2016-10-30 15:06] VITALS: BP 126/77
[2016-10-30] MEDS ORDERED: Saline Nasal Spray 44 ML BOTTLE NS SCH (15:30)
[2016-10-30] MEDS ORDERED: Sennosides/Docusate Sodium TABLET PO SCH (21:00)
--- NOTE | 2016-10-31 10:05 | Electrocardiograph Report ---
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
== END 2016-10-30 17:48 | disposition home or self-care (01) ==
LOC: EMEROO 06:54 → 3BNU 06:54
PROVIDERS: ADMIT Internal Medicine; ATTEND Internal Medicine

== ENCOUNTER 2019-03-16 07:13 | Observation (INO) ==
[2019-03-16] MEDS ORDERED: 0.9 % Sodium Chloride 1,000 ML IVC ONE (07:32)
[2019-03-16] MEDS ORDERED: *HR* Morphine 2 MG/ML SYRINGE IVP ONE (07:32)
[2019-03-16] MEDS ORDERED: Ondansetron 4 MG/2 ML VIAL IVP ONE (07:32)
[2019-03-16] MEDS ORDERED: Isovue-370 500 ML BOTTLE IVP ONE (07:34)
[2019-03-16] MEDS ORDERED: *HR* LORazepam 2 MG/ML VIAL IVP ONE (07:36)
[2019-03-16 08:10] LABS: Basophils # 0.1 K/mcL (0.0-0.2); Basophils % 0.8 %; Eosinophils # 0.4 K/mcL (0.0-0.6); Eosinophils % 3.9 %; Hematocrit 47.3 % (35.3-44.9); Immature Granulocytes % 0.1 % (0-4); Lymphocytes # 2.1 K/mcL (0.6-4.6); Lymphocytes % 23.1 %; Mean Corpuscular HGB Conc 33.8 g/dL (31.6-35.5); Mean Corpuscular Hemoglobin 31.9 pg (28.0-33.3); Mean Corpuscular Volume 94.2 fL (83.0-100.0); Mean Platelet Volume 9.9 fL (9.4-12.4); Monocytes # 0.7 K/mcL (0.0-1.3); Monocytes % 7.6 %; Neutrophils # 5.7 K/mcL (1.6-8.9); Platelet Count 315 K/mcL (140-400); Red Blood Count 5.02 M/mcL (3.82-4.97); Red Cell Distribution Width 13.5 % (11.5-14.5); Segmented Neutrophils % 64.5 %
--- NOTE | 2019-03-16 08:10 | Emergency Department Note ---
Disposition Clinical Impression: Near syncope Back pain Qualifiers: Back pain location: low back pain Chronicity: unspecified Back pain laterality: unspecified Sciatica presence: unspecified whether sciatica present Qualified Code(s): M54.5 - Low back pain Abdominal pain Qualifiers: Abdominal location: generalized Qualified Code(s): R10.84 - Generalized abdominal pain Disposition: Admitted As Inpatient Condition: Fair Referrals: Jean Aguila MD [Primary Care Provider] - Forms: ED Satisfaction Letter Time of Disposition: 10:30 General Adult HPI - General Chief complaint: ED Neuro Symptoms/Deficit Stated complaint: weakness/ numbness Time Seen by Provider: 03/16/19 07:19 Source: patient Mode of arrival: ambulatory Limitations: no limitations Nursing Notes Reviewed: Yes Vital Signs Reviewed: Yes - History of Present Illness HPI Narrative: Patient presents via personal vehicle to the emergency room for evaluation of severe onset of left lower quadrant abdominal pain and then diffuse body n umbness and paresthesias. Patient is also describing multiple other complaints that appear to be unassociated with the presentation here at this time. Patient does have long-standing medical issues. Onset (ago): hour(s) Location: head, chest, abdomen, left, lower extremity Radiation: other Pain Severity: severe Pain Scale: 10 Quality: stabbing Consistency: constant Improves with: nothing Worsens with: nothing Associated symptoms: Reports: denies other symptoms Treatments Prior to Arrival: none - Related Data Home Medications Medication Instructions Recorded Confirmed Acetaminophen [Extra Strength 500 - 1,000 mg PO BID 05/21/18 05/21/18 Non-Aspirin] Clopidogrel [Plavix] 75 mg PO DAILY 05/21/18 05/21/18 Previous Rx's Medication Instructions Recorded Sulfamethoxazole/Trimeth DS 1 each PO BID #20 tablet 01/05/19 [Bactrim DS] Meloxicam [Mobic] 7.5 mg PO BID #20 tablet 01/06/19 hydrOXYzine pamoate [HydrOXYzine 50 mg PO TID #15 cap 01/08/19 Pamoate] Allergies Allergy/AdvReac Type Severity Reaction Status Date / Time No Known Allergies Allergy Verified 02/16/19 05:17 All systems ED: reviewed and negative except as stated. Review of Systems: As Per HPI Constitutional: Denies: fever, chills, weakness Eyes: Denies: eye discharge, vision change ENT ED: Denies: congestion Cardiovascular: Reports: chest pain, palpitations. Denies: dyspnea on exertion, orthopnea, edema Respiratory: Denies: cough, dyspnea, wheezes Gastrointestinal: Reports: abdominal pain. Denies: nausea, vomiting, diarrhea, constipation Genitourinary: Denies: urgency, dysuria Musculoskeletal: Denies: back pain, neck pain Integumentary: Denies: rash Neurological: Denies: headache, weakness Allergic/Immunologic: Denies: facial swelling Past Medical History - Past Medical History Attestation: Yes The following information was validated with the patient. Source: patient Medical history: Reports: arthritis, COPD, GERD, hyperlipidemia, migraine, peripheral artery disease, TIA Surgical history: Reports: cholecystectomy, hysterectomy, other, LE stent (s) Psychiatric history: Reports: anxiety CUTTER TENDER history: Reports: no CUTTER TENDER history - Social History Smoking Status: Current every day smoker Smokeless Tobacco Status: No Alcohol use: Reports: none Drug use: Reports: none Physical Exam - General Limitations: no limitations General appearance: alert - Head Head exam: atraumatic, normocephalic, normal inspection - Eye Eye exam: Present: normal appearance, PERRL, EOMI - ENT ENT exam: normal exam, normal oropharynx, mucous membranes moist - Neck Neck exam: Present: normal inspection, full ROM, trachea midline - Chest Chest inspection: Present: normal inspection, symmetric chest wall rise - Respiratory Respiratory exam: Present: normal lung sounds bilaterally. Absent: respiratory distress, accessory muscle use - Cardiovascular Cardiovascular exam: Present: regular rate, normal rhythm, normal heart sounds - Abdominal Exam Abdominal exam: Present: soft, tenderness, normal bowel sounds. Absent: distention, guarding, rebound, rigidity, Cleaning's sign, Rovsing's sign, tende rness at McBurney's Point - Extremities Exam Extremities exam: Present: normal inspection, full ROM, normal capillary refill, other. Absent: tenderness, pedal edema - Back Exam Back exam: Present: normal inspection, full ROM. Absent: tenderness - Neurological Exam Neurological exam: Present: alert, oriented X3, CN II-XII intact, normal gait - Psychiatric Psychiatric exam: Present: anxious - Skin Skin exam: Present: warm, dry, intact, normal color Course Course Narrative: 63-year-old female presents emergency room for evaluation of lower abdominal pain that acutely started at 5 AM this morning. Denies any falls trauma or injury. The pain progressed into chest discomfort and diffuse body paresthesias. She feels tingling and numbness across her chest abdomen pelvis and extremities. Patient is a history of anxiety. She does have a headache. Denies any vision change. She does have chest pain but no shortness of breath. Denies any nausea vomiting or diarrhea. No fevers no chills. She has not traveled outside the country. She has not taken any new medications or change any of her medications at this time. Vital signs are reviewed and are stable. Patient is alert she is oriented. Her lungs are clear. Heart is regular. She has no signs of neurologic deficit. Cranial nerves II through XII are grossly intact. Pupils are equal round reactive. Extracted muscles are intact. She has no stridor no trismus and no bruits noted on auscultation. She has full range of motion the neck. During the abdominal examination the patient discl oses that she had a vascular procedure completed which she had a bypass in her lower abdomen she is unaware of the details of the procedure and is not able to describe the symptoms to me. Patient has pulses in the DP distributions bilaterally that are palpable in her feet are warm. Capillary refill is normal. Patient has no visible signs of scar injury to the lower abdomen. She denies any vaginal discharge or bleeding. I asked her if the procedure was completed percutaneously and she is not able to discuss it with me patient does appear to be very anxious and agitated at this time. There is some underlying etiology to this that is most likely secondary to the anxiety because of the patient's presentation symptoms and described history of vascular issues she will be sent for CT dissection study immediately on arrival. Previous labs from less than one month ago show no acute signs of renal insufficiency. Patient will be provided with fluids pain medication nausea medication while here. EKG and the imaging modalities like CT imaging of the head will be resulted. Disposition pe nding full workup and treatment course. The majority symptoms here today appear to be secondary to her anxiety but we will differentiate secondary to her describe medical history. Chart was reviewed by myself and I cannot find any previous history of a vascular bypass procedure. - Reevaluation(s) Reevaluation #1: CT angiography the chest abdomen and pelvis are unremarkable for acute signs of dissection or other abnormality. She does have diffuse atherosclerotic disease along with stable femoral-femoral bypass. CT imaging the head is negative as well. I went in to evaluate the patient again discussed the negative workup and findings and the patient was sleeping. When I woke her up he started to describe a multitude of complaints again. Some of these complaints are actually opposite of the complaint she described on initial presentation. She is now stating that she had several episodes of near-syncope at home this morning. Patient's EKG is otherwise unremarkable. We will bring her in an attempt a walker in the emergency department and then discuss disposition. She is otherwise clinically stable with no specific acute finding this accounts for the presentation of this time. Time: 09:37 Reevaluation #2: Patient had discomfort while walking and felt unsteady. She will be admitted at this time for symptomatic control management of unknown etiology causing all the presenting complaints here today. Hospitalist has been paged at this time. Time: 10:00 Reevaluation #3: Patient was discussed with the hospitalist Dr. Martinez. Detailed review the presentation the symptoms and medical intervention were discussed at length. No other questions or concerns are noted at this time. Patient will be admitted for symptomatic management and evaluation for near syncope and abdominal pain. Patient is denying any vaginal discharge bleeding or complaints in her pelvic area at this time as well. Her abdomen is unremarkable for acute etiology. Time: 11:02 Vital Signs Temperature 97.9 F 03/16/19 07:15 Pulse Rate 91 03/16/19 07:15 Respiratory Rate 18 03/16/19 07:15 Blood Pressure 135/82 03/16/19 07:15 O2 Sat by Pulse Oximetry 90 03/16/19 07:15 Temperature 97.9 F 03/16/19 07:15 Pulse Rate 65 03/16/19 09:52 Respiratory Rate 20 03/16/19 09:52 Blood Pressure 169/82 03/16/19 09:52 O2 Sat by Pulse Oximetry 100 03/16/19 09:52 Oxygen Delivery Oxygen Delivery Room Air Medical Decision Making - MDM Narrative Medical decision making narrative: Abdominal pain, anxiety, - Medical Records Medical records reviewed: Yes I reviewed the patient's medical records. - Lab Data Lab results reviewed: Yes I reviewed the patient's lab results. Result diagrams: 03/16/19 07:36 03/16/19 07:36 Lab Results 05/18/19 05/18/19 05/18/19 Range/Units 07:36 07:36 07:36 WBC 8.9 (4.3-11.1) K/mcL RBC 5.02 H (3.82-4.97) M/mcL Hgb 16.0 H (11.5-15.4) g/dL Hct 47.3 H (35.3-44.9) % MCV 94.2 (83.0-100.0) fL MCH 31.9 (28.0-33.3) pg MCHC 33.8 (31.6-35.5) g/dL RDW 13.5 (11.5-14.5) % Plt Count 315 (140-400) K/mcL MPV 9.9 (9.4-12.4) fL Immature Gran % 0.1 (0-4) % Seg Neutrophils % 64.5 % Lymphocytes % 23.1 % Monocytes % 7.6 % Eosinophils % 3.9 % Basophils % 0.8 % Neutrophils # 5.7 (1.6-8.9) K/mcL Lymphocytes # 2.1 (0.6-4.6) K/mcL Monocytes # 0.7 (0.0-1.3) K/mcL Eosinophils # 0.4 (0.0-0.6) K/mcL Basophils # 0.1 (0.0-0.2) K/mcL PT 10.4 (9.4-12.1) Seconds INR 0.9 APTT 32.3 (26.0-36.0) Seconds Sodium 141 (136-145) mEq/L Potassium 3.5 (3.5-5.1) mEq/L Chloride 109 H (98-107) mEq/L Carbon Dioxide 24 (23-29) mEq/L BUN 18 (8-23) mg/dL Creatinine 0.58 L (0.60-1.20) mg/dL Est GFR ( Amer) > 60 (> 60) Est GFR (Non-Af Amer) > 60 (> 60) BUN/Creatinine Ratio 31 H (6-26) Glucose 96 (70-105) mg/dL Calculated Osmolality 294 (280-300) Lactic Acid (0.5-2.2) mmol/L Calcium 8.9 (8.6-10.3) mg/dL Total Bilirubin 0.6 (0.3-1.0) mg/dL Direct Bilirubin 0.1 (0.0-0.2) mg/dL Indirect Bilirubin 0.5 (0.0-1.2) mg/dL AST 28 (13-39) Units/L ALT 21 (7-52) Units/L Alkaline Phosphatase 75 (34-104) Units/L Troponin I < 0.03 (< 0.04) ng/mL Serum Total Protein 6.3 L (6.4-8.9) g/dL Albumin 4.2 (3.5-5.7) g/dL Globulin 2.1 L (2.4-3.5) g/dL Albumin/Globulin Ratio 2.0 (1.1-2.2) Lipase 24 (11-82) Units/L Urine Color (Yellow) Urine Clarity (Clear) Urine pH (5.0-8.0) pH Units Ur Specific [place] (1.010-1.025) Urine Protein (Neg-Trace) mg/dL Urine Glucose (UA) (Normal) mg/dL Urine Ketones (Negative) mg/dL Urine Blood (Negative) Urine Nitrite (Negative) Urine Bilirubin (Negative) Urine Urobilinogen (Normal) mg/dL Ur Leukocyte Esterase (Negative) Ur Culture Indicated? (NO) 03/16/19 03/16/19 Range/Units 07:51 08:11 WBC (4.3-11.1) K/mcL RBC (3.82-4.97) M/mcL Hgb (11.5-15.4) g/dL Hct (35.3-44.9) % MCV (83.0-100.0) fL MCH (28.0-33.3) pg MCHC (31.6-35.5) g/dL RDW (11.5-14.5) % Plt Count (140-400) K/mcL MPV (9.4-12.4) fL Immature Gran % (0-4) % Seg Neutrophils % % Lymphocytes % % Monocytes % % Eosinophils % % Basophils % % Neutrophils # (1.6-8.9) K/mcL Lymphocytes # (0.6-4.6) K/mcL Monocytes # (0.0-1.3) K/mcL Eosinophils # (0.0-0.6) K/mcL Basophils # (0.0-0.2) K/mcL PT (9.4-12.1) Seconds INR APTT (26.0-36.0) Seconds Sodium (136-145) mEq/L Potassium (3.5-5.1) mEq/L Chloride (98-107) mEq/L Carbon Dioxide (23-29) mEq/L BUN (8-23) mg/dL Creatinine (0.60-1.20) mg/dL Est GFR ( Amer) (> 60) Est GFR (Non-Af Amer) (> 60) BUN/Creatinine Ratio (6-26) Glucose (70-105) mg/dL Calculated Osmolality (280-300) Lactic Acid 0.5 (0.5-2.2) mmol/L Calcium (8.6-10.3) mg/dL Total Bilirubin (0.3-1.0) mg/dL Direct Bilirubin (0.0-0.2) mg/dL Indirect Bilirubin (0.0-1.2) mg/dL AST (13-39) Units/L ALT (7-52) Units/L Alkaline Phosphatase (34-104) Units/L Troponin I (< 0.04) ng/mL Serum Total Protein (6.4-8.9) g/dL Albumin (3.5-5.7) g/dL Globulin (2.4-3.5) g/dL Albumin/Globulin Ratio (1.1-2.2) Lipase (11-82) Units/L Urine Color Yellow (Yellow) Urine Clarity Clear (Clear) Urine pH 6.0 (5.0-8.0) pH Units Ur Specific [place] 1.021 (1.010-1.025) Urine Protein Negative (Neg-Trace) mg/dL Urine Glucose (UA) Normal (Normal) mg/dL Urine Ketones Negative (Negative) mg/dL Urine Blood Negative (Negative) Urine Nitrite Negative (Negative) Urine Bilirubin Negative (Negative) Urine Urobilinogen Normal (Normal) mg/dL Ur Leukocyte Esterase Negative (Negative) Ur Culture Indicated? NO (NO) - Radiology Data Radiology results reviewed: Yes I reviewed the patient's radiology results. - EKG Data EKG #1 EKG attestation: Yes I reviewed and interpreted this EKG. EKG results narrative: EKG shows sinus rhythm. Heart rate is 72. ID interval 182. QRS duration of 84. QTC of 426. [place] is normal. Patient does not show any acute signs of ST segment elevation or abnormality. No acute signs of WPW or Brugada syndrome. Previous EKG from 11/15/18 shows no acute changes
[2019-03-16 08:17] LABS: INR 0.9; Prothrombin Time 10.4 Seconds (9.4-12.1)
[2019-03-16 08:19] LABS: Activated Partial Thrombo Time 32.3 Seconds (26.0-36.0)
[2019-03-16 08:20] LABS: Bilirubin,Urine Negative (Negative); Blood,Urine Negative (Negative); Clarity,Urine Clear (Clear); Color,Urine Yellow (Yellow); Glucose,Urine (UA) Normal (Normal); Ketones,Urine Negative (Negative); Leukocyte Esterase,Urine Negative (Negative); Nitrite,Urine Negative (Negative); Protein,Urine Negative (Neg-Trace); Specific Gravity,Urine 1.021 (1.010-1.025); Urobilinogen,Urine Normal (Normal)
[2019-03-16 08:30] LABS: Alanine Aminotransferase 21 Units/L (7-52); Albumin 4.2 g/dL (3.5-5.7); Alkaline Phosphatase 75 Units/L (34-104); Aspartate Amino Transferase 28 Units/L (13-39); BUN/Creatinine Ratio 31 (6-26); Bilirubin,Direct 0.1 mg/dL (0.0-0.2); Bilirubin,Indirect 0.5 mg/dL (0.0-1.2); Bilirubin,Total 0.6 mg/dL (0.3-1.0); Blood Urea Nitrogen 18 mg/dL (8-23); Calcium 8.9 mg/dL (8.6-10.3); Carbon Dioxide 24 mEq/L (23-29); Chloride 109 mEq/L (98-107); Globulin 2.1 g/dL (2.4-3.5); Glucose 96 mg/dL (70-105); Lipase 24 Units/L (11-82); Osmolality,Calculated 294 (280-300); Potassium 3.5 mEq/L (3.5-5.1); Sodium 141 mEq/L (136-145); Total Protein 6.3 g/dL (6.4-8.9); Troponin I < 0.03 ng/mL (< 0.04); eGFR For Non-African Americans > 60 (> 60)
[2019-03-16] MEDS ORDERED: Naloxone 0.4 MG/ML INJ IVP PRN (13:06)
[2019-03-16] MEDS ORDERED: *HR* OxyCODONE Immed Rel 5 MG TABLET PO PRN (13:06)
--- NOTE | 2019-03-16 13:16 | Internal Med History&Physical ---
Date of Encounter: 03/16/19 Time of Encounter: 13:12 Internal Medicine - H&P: HPI Chief complaint: lower abdominal pain, chest discomfort . diffuse body paresthesias, tinglin History of present illness: Ms. Ramesh is a 63 year old female 63-year-old female presents emergency room for several unspecific complaints including lower abdominal pain, chest discomfort . diffuse body paresthesias, tingling and numbness across her chest abdomen pelvis and extremities and unsteady gate. She has no signs of neurologic deficit. Cranial nerves II through XII are grossly intact. The patient stated that she had vascular procedure in the past. CT dissection study as well as CT imaging of the head were negative. Patient will be admitted for symptomatic management and evaluation of abdominal pain and unsteady gate. Past Med Surg Social Fam HX - Past Medical History Medical history: arthritis, COPD, GERD, hyperlipidemia, migraine, peripheral artery disease, TIA Additional medical history: carpal tunnel,vertigo, palpitations, hole in left ear Psychiatric history: anxiety - Past Surgical History Surgical History: cholecystectomy, hysterectomy, other, LE stent (s) Additional surgical history: breast implant removal, silicone breast augmentation,. ear surgery. stents placed in legs - Social History Smoking Status: Current every day smoker Packs per day: 1 Smokeless Tobacco Status: No Alcohol use: none Drug use: none - Family History Mother Family Member Ethnicity: Non- Living Status: Father Living Status: Hx Family Cardiac Disorders: Yes (NE) Hx Family Neurologic Disorders: Yes Internal Medicine - H&P: Meds Clopidogrel [Plavix] 75 mg PO DAILY 05/21/18 [History] Pregabalin [Lyrica] 25 mg PO BID 90 Days #60 capsule 03/18/19 [Rx] Allergy/AdvReac Type Severity Reaction Status Date / Time No Known Allergies Allergy Verified 03/17/19 10:46 All Systems PM: A 10-system review of systems was performed and is negative for pertinent findings except as documented above in the HPI. - Constitutional Constitutional: weakness, no fever(s), no night sweats - EENT Eyes: no change in vision, no discharge, no pain, no photophobia Ears: no ear discharge, no ear pain, no tinnitus Nose, mouth and throat: no dysphagia, no nasal discharge, no neck pain, no sore throat - Cardiovascular Cardiovascular ROS IM: no chest pain, no diaphoresis, no dyspnea, no lightheadedness, no palpitations, no syncope - Respiratory Respiratory: no cough, no dyspnea, no wheezing, no excessive phlegm production - Gastrointestinal Gastrointestinal: no abdominal pain, no diarrhea, no hematemesis, no hematochezia, no melena, no nausea, no vomiting - Genitourinary Genitourinary: no change in urinary stream, no dysuria, no flank pain, no hematuria - Musculoskeletal Musculoskeletal ROS IM: no numbness, no tingling - Integumentary Integumentary IM: no rash, no unusual bruising - Neurological Neurological ROS: no confusion, no convulsions, no focal weakness, no numbness, no tingling, no tremor(s) - Hematologic/Lymphatic Hematologic/Lymphatic: no easy bruising - Constitutional Vitals: Temp Pulse Resp BP Pulse Ox 98 F 63 14 135/80 98 03/16/19 11:55 03/16/19 11:55 03/16/19 11:55 03/16/19 11:55 03/16/19 11:55 Exam: PHYSICAL EXAMINATION: GENERAL APPEARANCE: The patient is alert, oriented and in no acute distress. HEENT: Head is normocephalic. The sinuses are nontender. Pupils are equal and reactive. The nares are patent. Oropharynx clear without lesions. NECK: Supple without lymphadenopathy. HEART: Regular rate and rhythm. LUNGS: No crackles or wheezes are heard. ABDOMEN: Soft, nontender, nondistended with good bowel sounds heard. Inguinal area is normal. EXTREMITIES: Without cyanosis, clubbing or edema. NEUROLOGICAL: Gross nonfocal. SKIN: Warm and dry without any rash. Internal Med - H&P Results - Labs CBC & Chem 7: 03/17/19 10:57 03/18/19 05:12 Labs: Short CBC 03/16/19 Range/Units 07:36 WBC 8.9 (4.3-11.1) K/mcL Hgb 16.0 H (11.5-15.4) g/dL Hct 47.3 H (35.3-44.9) % Plt Count 315 (140-400) K/mcL Neutrophils # 5.7 (1.6-8.9) K/mcL BMP 03/16/19 07:36 Sodium 141 Potassium 3.5 Chloride 109 H Carbon Dioxide 24 BUN 18 Creatinine 0.58 L Glucose 96 Calcium 8.9 Cardiac Enzymes 03/16/19 Range/Units 07:36 Troponin I < 0.03 (< 0.04) ng/mL Liver Function 03/16/19 Range/Units 07:36 Total Bilirubin 0.6 (0.3-1.0) mg/dL Direct Bilirubin 0.1 (0.0-0.2) mg/dL AST 28 (13-39) Units/L ALT 21 (7-52) Units/L Alkaline Phosphatase 75 (34-104) Units/L Albumin 4.2 (3.5-5.7) g/dL Urine 03/16/19 Range/Units 07:51 Urine Color Yellow (Yellow) Urine Clarity Clear (Clear) Urine pH 6.0 (5.0-8.0) pH Units Ur Specific [place] 1.021 (1.010-1.025) Urine Protein Negative (Neg-Trace) mg/dL Urine Glucose (UA) Normal (Normal) mg/dL - Impressions ITS Impressions CT Dissection 03/16/19 07:34 IMPRESSION: 1. No acute abnormality within the chest, abdomen, and pelvis. 2. Severe atherosclerotic disease throughout the thoracoabdominal aorta without aneurysm or dissection. 3. 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 Femoral-femoral bypass graft is patent. D/ / 03/16/2019 10:36:23 Kaleb Fletcher MD / deyanira Interpreting Provider: Kaleb Fletcher MD Head CT 03/16/19 07:34 IMPRESSION: Stable CT brain with no acute intracranial abnormality. D/ / Donte Perez MD / Donte Perez MD Interpreting Provider: Donte Perez MD - Assessment and Plan (1) Unsteady gait Status: Acute Assessment and plan: The patient is neurologically intact, CAT scan of the head was negative case was discussed with neurology, he recommended MRI of the brain, he will see the patient in consult (2) Abdominal pain Status: Acute Assessment and plan: Imaging studies was no significant abnormalities, there is some concern about how unspecific her symptoms, and might be attributed to severe anxiety Qualifiers: Abdominal location: unspecified location Qualified Code(s): R10.9 - Unspecified abdominal pain (3) Anxiety Status: Chronic (4) Chest pain Status: Acute Assessment and plan: EKG, as well as cardiac enzymes was no significant abnormalities, dissection studies was performed and was also negative, symptoms could be attributed to anxiety Qualifiers: Chest pain type: other chest pain Qualified Code(s): R07.89 - Other chest pain; R07.8 - Other chest pain (5) Back pain Status: Acute Qualifiers: Back pain location: low back pain Chronicity: unspecified Back pain laterality: unspecified Sciatica presence: unspecified whether sciatica present Qualified Code(s): M54.5 - Low back pain (6) COPD (chronic obstructive pulmonary disease) Status: Chronic Assessment and plan: The patient currently is not on any medication, no evidence of exacerbation, we will start the patient on when necessary DuoNeb Qualifiers: COPD type: unspecified COPD Qualified Code(s): J44.9 - Chronic obstructive pulmonary disease, unspecified (7) DVT prophylaxis Status: Acute Assessment and plan: The patient is low risk and she is ambulatory - Time Spent With Patient Total time spent is greater than 50% in coordination of care (as documented) at patient's floor/unit and/or counseling patient:
[2019-03-16] MEDS: 0.9 % Sodium Chloride 1,000 ML IVC SCH (13:53)
[2019-03-16 14:38] LABS: Alanine Aminotransferase 20 Units/L (7-52); Albumin/Globulin Ratio 2.1 (1.1-2.2); Alkaline Phosphatase 72 Units/L (34-104); Aspartate Amino Transferase 26 Units/L (13-39); BUN/Creatinine Ratio 21 (6-26); Bilirubin,Total 0.8 mg/dL (0.3-1.0); Blood Urea Nitrogen 13 mg/dL (8-23); Carbon Dioxide 28 mEq/L (23-29); Chloride 108 mEq/L (98-107); Globulin 1.9 g/dL (2.4-3.5); Glucose 119 mg/dL (70-105); Osmolality,Calculated 295 (280-300); Potassium 3.8 mEq/L (3.5-5.1); Sodium 142 mEq/L (136-145); Total Protein 5.9 g/dL (6.4-8.9); eGFR For Non-African Americans > 60 (> 60)
[2019-03-16] MEDS: Acetaminophen 325 MG TABLET PO PRN (21:46)
[2019-03-17] MEDS: Acetaminophen 325 MG TABLET PO PRN (04:11)
[2019-03-17] MEDS: 0.9 % Sodium Chloride 1,000 ML IVC SCH (09:25)
--- NOTE | 2019-03-17 10:23 | Internal Med Progress Note ---
Hospitalist Progress Note - Encounter Date of Encounter: 03/17/19 Time of Encounter: 10:21 - Subjective Interval History: Patient seen and examined in the room, she has numerous complaints including abdominal pain, abdominal swelling, bloating, pain of the upper legs, chest pain, and headache. She denies fever, chills, or night sweat. No recent weight loss or bowel habit change. - Exam Vitals: Temp Pulse Resp BP Pulse Ox 97.9 F 62 16 160/78 96 03/17/19 07:47 03/17/19 07:47 03/17/19 07:47 03/17/19 07:47 03/17/19 07:47 Exam: PHYSICAL EXAMINATION: GENERAL APPEARANCE: The patient is alert, oriented and in no acute distress. HEENT: Head is normocephalic. The sinuses are nontender. Pupils are equal and reactive. The nares are patent. Oropharynx clear without lesions. NECK: Supple without lymphadenopathy. HEART: Regular rate and rhythm. LUNGS: No crackles or wheezes are heard. ABDOMEN: Soft, nontender, nondistended with good bowel sounds heard. Inguinal area is normal. EXTREMITIES: Without cyanosis, clubbing or edema. NEUROLOGICAL: Gross nonfocal. SKIN: Warm and dry without any rash. - Assessment and Plan (1) Chest pain Current Visit: No Status: Acute Assessment and Plan: EKG, as well as cardiac enzymes was no significant abnormalities, dissection studies was performed and was also negative, symptoms could be attributed to anxiety. Due to her complaint of pain at the numerous locations, somatic symptoms syndrome was suspected. Patient also has history of anxiety, but currently not on any medications, will start patient on nortriptyline. Lyrica was also started for possible nerve pain. Psychiatry consult. (2) Anxiety Current Visit: No Status: Chronic Assessment and Plan: Same as above. (3) Back pain Current Visit: Yes Status: Acute Assessment and Plan: Same as above. (4) COPD (chronic obstructive pulmonary disease) Current Visit: No Status: Chronic Assessment and Plan: The patient currently is not on any medication, no evidence of exacerbation, we will start the patient on when necessary DuoNeb (5) Unsteady gait Current Visit: Yes Status: Acute Assessment and Plan: The patient is neurologically intact. MRI of brain negative. Management same as above. (6) Abdominal pain Current Visit: Yes Status: Acute Assessment and Plan: Imaging studies was no significant abnormalities, there is some concern about how unspecific her symptoms, and might be attributed to severe anxiety (7) DVT prophylaxis Current Visit: Yes Status: Acute Assessment and Plan: The patient is low risk and she is ambulatory - Time Spent with Patient Total time spent is greater than 50% in coordination of care (as documented) at patient's floor/unit and/or counseling patient: Greater than 35 minutes Plan of Care Discussed with: patient Internal Medicine: Result - Labs CBC & Chem 7: 03/16/19 07:36 03/16/19 13:52 Labs: BMP 03/16/19 13:52 Sodium 142 Potassium 3.8 Chloride 108 H Carbon Dioxide 28 BUN 13 Creatinine 0.61 Glucose 119 H Calcium 9.0 Liver Function 03/16/19 Range/Units 13:52 Total Bilirubin 0.8 (0.3-1.0) mg/dL AST 26 (13-39) Units/L ALT 20 (7-52) Units/L Alkaline Phosphatase 72 (34-104) Units/L Albumin 4.0 (3.5-5.7) g/dL - ABG Interpretation ABG results: PT/INR, D-dimer PT 10.4 Seconds (9.4-12.1) 03/16/19 07:36 - Impressions Impressions CT Dissection 03/16/19 07:34 IMPRESSION: 1. No acute abnormality within the chest, abdomen, and pelvis. 2. Severe atherosclerotic disease throughout the thoracoabdominal aorta without aneurysm or dissection. 3. 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 Femoral-femoral bypass graft is patent. D/ / 03/16/2019 10:36:23 Kaleb Fletcher MD / deyanira Interpreting Provider: Kaleb Fletcher MD Brain MRI 03/16/19 14:59 IMPRESSION: No acute intracranial abnormality. D/ / Howard Villagran MD / Howard Villagran MD Interpreting Provider: Howard Villagran MD Consult Discharge Plan - Plan Referrals: Jean Aguila MD [Primary Care Provider] - (1) Chest pain Qualifiers: Chest pain type: other chest pain Qualified Code(s): R07.89 - Other chest pain; R07.8 - Other chest pain (3) Back pain Qualifiers: Back pain location: low back pain Chronicity: unspecified Back pain laterality: unspecified Sciatica presence: unspecified whether sciatica present Qualified Code(s): M54.5 - Low back pain (4) COPD (chronic obstructive pulmonary disease) Qualifiers: COPD type: unspecified COPD Qualified Code(s): J44.9 - Chronic obstructive pulmonary disease, unspecified
[2019-03-17] MEDS ORDERED: *HR* LORazepam 1 MG TABLET PO PRN (10:29)
[2019-03-17] MEDS: Pregabalin 25 MG CAPSULE PO SCH ×2 (11:21→20:25)
[2019-03-17 12:27] LABS: Basophils # 0.1 K/mcL (0.0-0.2); Basophils % 0.8 %; Eosinophils # 0.4 K/mcL (0.0-0.6); Eosinophils % 4.8 %; Hematocrit 45.5 % (35.3-44.9); Hemoglobin 14.7 g/dL (11.5-15.4); Immature Granulocytes % 0.1 % (0-4); Lymphocytes # 1.8 K/mcL (0.6-4.6); Lymphocytes % 24.9 %; Mean Corpuscular HGB Conc 32.3 g/dL (31.6-35.5); Mean Corpuscular Hemoglobin 31.3 pg (28.0-33.3); Mean Corpuscular Volume 96.8 fL (83.0-100.0); Mean Platelet Volume 10.5 fL (9.4-12.4); Monocytes # 0.6 K/mcL (0.0-1.3); Monocytes % 7.5 %; Neutrophils # 4.5 K/mcL (1.6-8.9); Platelet Count 296 K/mcL (140-400); Red Cell Distribution Width 13.6 % (11.5-14.5); Segmented Neutrophils % 61.9 %
[2019-03-17 12:38] LABS: Activated Partial Thrombo Time 30.7 Seconds (26.0-36.0)
[2019-03-17 12:43] LABS: Chol/HDL Ratio 4.5 (0-4.9); Magnesium 2.1 mg/dL (1.6-2.6); Phosphorous 3.3 mg/dL (2.7-4.5)
[2019-03-17] MEDS ORDERED: Pregabalin 25 MG CAPSULE PO SCH (21:00)
[2019-03-18] MEDS: Acetaminophen 325 MG TABLET PO PRN ×2 (01:49→09:36)
[2019-03-18 06:05] LABS: BUN/Creatinine Ratio 27 (6-26); Blood Urea Nitrogen 18 mg/dL (8-23); Calcium 9.5 mg/dL (8.6-10.3); Carbon Dioxide 27 mEq/L (23-29); Chloride 106 mEq/L (98-107); Glucose 95 mg/dL (70-105); Osmolality,Calculated 294 (280-300); Potassium 4.2 mEq/L (3.5-5.1); Sodium 141 mEq/L (136-145); eGFR For Non-African Americans > 60 (> 60)
[2019-03-18] MEDS: Pregabalin 25 MG CAPSULE PO SCH (09:36)
--- NOTE | 2019-03-18 09:59 | Electrocardiograph Report ---
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
[2019-03-18 11:43] VITALS: BP 118/68
--- NOTE | 2019-03-18 12:59 | Consult Note ---
Date of Encounter: 03/18/19 Time of Encounter: 12:55 Assessment & Recommendation (1) Generalized anxiety disorder Current visit: Yes Status: Acute Assessment & Recommendation: Client does seem to have a lot of generalized anxiety. Suspect some of her presentation for physical health problems is related to her level of anxiety. However, she denies SI/HI/AH/VH and does not meet criteria for inpatient mental health care. Recommend she follow up as an outpatient. Recommend a high school social studies tutor consult to refer her for counseling as talk therapy is likely to be more beneficial than anything. Client is reluctant to take medications and endorses a lot of side effects to meds that are currently being prescribed. Started on Nortriptyline here in the hospital. This medication is good for mood, anxiety, and nerve pain but does have some anticholinergic side effects. If client tolerates it then recommend continuing it for now. However, if she endorses worsening constipation, urinary retention, etc. may want to discontinue it and have her follow up as an outpatient for alternative recommendations. Will sign off. Call if any questions. History of Present Illness Requesting Physician: Brook Martinez Reason for consult: anxiety History of present illness: Ms. Ramesh is a 63 year old female with a variety of somatic complaints with no known organic cause. Psychiatry was consulted to address anxiety. On eval client denies she is depressed or anxious but she does have a variety of somatic complaints. No real mental health history although client did report seeing a counselor once before. Does not like taking medication and states she has felt very tired with everything that has been prescribed here for her in the hospital. Denies SI, intent, or plan. Claims her outpatient doctor has talked to her about depression and anxiety in the past but that she is reluctant to see mental health issues as the cause of her problems. CC: Brook Martinez Past Med Surg Social Fam HX - Past Medical History Medical history: arthritis, COPD, GERD, hyperlipidemia, migraine, peripheral artery disease, TIA - Past Psychiatric History Psychiatric history: Reports: no psych history Family psychiatric history: Unknown Family History of Suicide: Unknown - Past Surgical History Surgical History: cholecystectomy, hysterectomy, other, LE stent (s) - Social History Smoking Status: Current every day smoker Smokeless Tobacco Status: No Alcohol use: none Drug use: none - Family History Mother Family Member Ethnicity: Non- Living Status: Father Living Status: Hx Family Cardiac Disorders: Yes (PR) Hx Family Neurologic Disorders: Yes Medications & Allergies Clopidogrel [Plavix] 75 mg PO DAILY 05/21/18 [History] Allergy/AdvReac Type Severity Reaction Status Date / Time No Known Allergies Allergy Verified 03/17/19 10:46 Review of Systems Constitutional: Reports: weakness Eyes: Denies: eye pain, vision change Ears, Nose, Throat: Denies: ear pain, throat pain, dental pain, hearing loss, congestion Cardiovascular: Denies: chest pain, palpitations, dyspnea on exertion Respiratory: Denies: cough, dyspnea, wheezes Gastrointestinal: Reports: abdominal pain Genitourinary female: Reports: other Musculoskeletal: Reports: myalgia Integumentary: Denies: rash, lesions, pruritus Neurological: Reports: numbness, paresthesias Endocrine: Denies: fatigue, heat or cold intolerance Hematologic/Lymphatic: Denies: easy bruising, lymphadenopathy Allergic/Immunologic: Denies: urticaria, itchy eyes Psychiatry Exam - Constitutional Vitals: Temp Pulse Resp BP Pulse Ox 98.1 F 62 16 118/68 94 03/18/19 11:42 03/18/19 11:42 03/18/19 11:42 03/18/19 11:42 03/18/19 11:42 General appearance: age & developmentally appropriate - Musculoskeletal Gait: other Station: relaxed Strength & Tone: normal for patient - Psychiatric Patient Orientation: Yes Person, Yes Time, Yes Place Level of alertness: Alert Behavior: calm, cooperative Psychomotor activity: Normal Eye Contact: Maintains Eye Contact Mood Description: Anxious Affect description: congruent with mood Speech Volume: Normal Speech pattern: normal rate, normal rhythm, normal tone, fluent, spontaneous Language & Vocabulary: consistent with education Thought Process: Linear Thought Content: No Suicidal ideation, No Homicidal ideation, No Overt delusions Perceptual Disturbances: No Auditory hallucinations, No Visual hallucinations Attention Span Ability: Capable of Focused Attention Memory Description: Grossly Intact Patient Reliability: Questionable Historian Fund of knowledge: Yes abstraction ability, Yes aware of current events Intelligence Estimate: Average Judgment: Fair Insight: Partial Results - Labs Labs: Laboratory Last Values WBC 7.3 K/mcL (4.3-11.1) 03/17/19 10:57 RBC 4.70 M/mcL (3.82-4.97) 03/17/19 10:57 Hgb 14.7 g/dL (11.5-15.4) 03/17/19 10:57 Hct 45.5 % (35.3-44.9) H 03/17/19 10:57 MCV 96.8 fL (83.0-100.0) 03/17/19 10:57 MCH 31.3 pg (28.0-33.3) 03/17/19 10:57 MCHC 32.3 g/dL (31.6-35.5) 03/17/19 10:57 RDW 13.6 % (11.5-14.5) 03/17/19 10:57 Plt Count 296 K/mcL (140-400) 03/17/19 10:57 MPV 10.5 fL (9.4-12.4) 03/17/19 10:57 Immature Gran % 0.1 % (0-4) 03/17/19 10:57 Seg Neutrophils % 61.9 % 03/17/19 10:57 24.9 % 03/17/19 10:57 7.5 % 03/17/19 10:57 4.8 % 03/17/19 10:57 0.8 % 03/17/19 10:57 4.5 K/mcL (1.6-8.9) 03/17/19 10:57 1.8 K/mcL (0.6-4.6) 03/17/19 10:57 0.6 K/mcL (0.0-1.3) 03/17/19 10:57 0.4 K/mcL (0.0-0.6) 03/17/19 10:57 0.1 K/mcL (0.0-0.2) 03/17/19 10:57 PT 11.0 Seconds (9.4-12.1) 03/17/19 10:57 INR 1.0 03/17/19 10:57 APTT 30.7 Seconds (26.0-36.0) 03/17/19 10:57 Sodium 141 mEq/L (136-145) 03/18/19 05:12 Potassium 4.2 mEq/L (3.5-5.1) 03/18/19 05:12 Chloride 106 mEq/L (98-107) 03/18/19 05:12 Carbon Dioxide 27 mEq/L (23-29) 03/18/19 05:12 BUN 18 mg/dL (8-23) 03/18/19 05:12 0.67 mg/dL (0.60-1.20) 03/18/19 05:12 Est GFR ( Amer) > 60 (> 60) 03/18/19 05:12 Est GFR (Non-Af Amer) > 60 (> 60) 03/18/19 05:12 27 (6-26) H 03/18/19 05:12 Glucose 95 mg/dL (70-105) 03/18/19 05:12 294 (280-300) 03/18/19 05:12 Lactic Acid 0.5 mmol/L (0.5-2.2) 03/16/19 08:11 Calcium 9.5 mg/dL (8.6-10.3) 03/18/19 05:12 Phosphorus 3.3 mg/dL (2.7-4.5) 03/17/19 10:57 Magnesium 2.1 mg/dL (1.6-2.6) 03/17/19 10:57 0.8 mg/dL (0.3-1.0) 03/16/19 13:52 0.1 mg/dL (0.0-0.2) 03/16/19 07:36 0.5 mg/dL (0.0-1.2) 03/16/19 07:36 AST 26 Units/L (13-39) 03/16/19 13:52 ALT 20 Units/L (7-52) 03/16/19 13:52 72 Units/L (34-104) 03/16/19 13:52 < 0.03 ng/mL (< 0.04) 03/16/19 07:36 5.9 g/dL (6.4-8.9) L 03/16/19 13:52 4.0 g/dL (3.5-5.7) 03/16/19 13:52 1.9 g/dL (2.4-3.5) L 03/16/19 13:52 2.1 (1.1-2.2) 03/16/19 13:52 Triglycerides 194 mg/dL (< 150) H 03/17/19 10:57 Cholesterol 198 mg/dL (< 200) 03/17/19 10:57 LDL Cholesterol, Calc 115 mg/dL (0-99) H 03/17/19 10:57 VLDL Cholesterol, Calc 39 mg/dL (< 31) H 03/17/19 10:57 44 mg/dL (40-59) 03/17/19 10:57 4.5 (0-4.9) 03/17/19 10:57 24 Units/L (11-82) 03/16/19 07:36 Yellow (Yellow) 03/16/19 07:51 Clear (Clear) 03/16/19 07:51 6.0 pH Units (5.0-8.0) 03/16/19 07:51 Ur Specific Bowie 1.021 (1.010-1.025) 03/16/19 07:51 Negative mg/dL (Neg-Trace) 03/16/19 07:51 Normal mg/dL (Normal) 03/16/19 07:51 Negative mg/dL (Negative) 03/16/19 07:51 Negative (Negative) 03/16/19 07:51 Negative (Negative) 03/16/19 07:51 Negative (Negative) 03/16/19 07:51 Normal mg/dL (Normal) 03/16/19 07:51 Ur Leukocyte Esterase Negative (Negative) 03/16/19 07:51 Ur Culture Indicated? NO (NO) 03/16/19 07:51 Consult Discharge Plan - Plan Referrals: Jean Aguila MD [Primary Care Provider] -
--- NOTE | 2019-03-18 13:35 | Discharge Summary ---
- NOTES TO OUTPATIENT PROVIDER Notes to Outpatient Provider: f/u with psychiatry within a month. f/u with PCP within 2 weeks. Orders not resulted at time of discharge: Pending orders 03/17/19 21:29 Porphobilinogen,Ur Random Routine Date of Encounter: 03/18/19 Time of Encounter: 13:34 - Discharge Diagnosis (1) Chest pain Priority: Primary Status: Acute Qualifiers: Chest pain type: other chest pain Qualified Code(s): R07.89 - Other chest pain; R07.8 - Other chest pain (2) Anxiety Priority: Primary Status: Chronic (3) Back pain Priority: Primary Status: Acute Qualifiers: Back pain location: low back pain Chronicity: unspecified Back pain laterality: unspecified Sciatica presence: unspecified whether sciatica present Qualified Code(s): M54.5 - Low back pain (4) COPD (chronic obstructive pulmonary disease) Priority: Secondary Status: Chronic Qualifiers: COPD type: unspecified COPD Qualified Code(s): J44.9 - Chronic obstructive pulmonary disease, unspecified (5) Unsteady gait Priority: Primary Status: Acute (6) Abdominal pain Priority: Primary Status: Acute Qualifiers: Abdominal location: unspecified location Qualified Code(s): R10.9 - Unspecified abdominal pain (7) DVT prophylaxis Priority: Primary Status: Acute Hospital course: Ms. Ramesh is a 63 year old female 6presents emergency room for several unspecific complaints including lower abdominal pain, chest discomfort, diffuse body paresthesias, tingling and numbness across her chest, abdomen, pelvis, and extremities, and unsteady gate. per pt family, she had similar issues in the past and was counseled once. She also has hx of anxiety but not taking meds currently. While in the ED, patient vital signs were stable, labs were unremarkable. CT chest/abdomen/pelvis showed in no acute abnormalities, severe arthrosclerotic disease throughout the thoracic and abdominal aorta without aneurysm or dissection, occlusion of right common iliac arteries stents, which is unchanged from prior study, patent femoral to femoral bypass graft. MRI of brain has no acute CVA or other abnormalities. She was started on nortriptyline and Lyrica for depression/anxiety and in no pain. Psychiatry was consulted, recommended outpatient follow-up. However, patient refused taking nortriptyline but stated that the liver, help her no pain. After discussed with patient about the treatment plan, we will discharge patient home today, she was instructed to continue taking Lyrica and Plavix, follow-up with psychiatry as outpatient. Discharge discussed with: patient Time spent discussing smoking cessation with patient: more than 10 minutes - Time Spent with Patient Total time spent providing and/or coordinating discharge services: Time spent: Greater than 30 minutes - Discharge Medications Prescriptions: New Pregabalin [Lyrica] 25 mg PO BID 90 Days #60 capsule Continued Clopidogrel [Plavix] 75 mg PO DAILY Home Medications: Clopidogrel [Plavix] 75 mg PO DAILY 05/21/18 [History] Pregabalin [Lyrica] 25 mg PO BID 90 Days #60 capsule 03/18/19 [Rx] Allergies/Adverse Reactions: Allergy/AdvReac Type Severity Reaction Status Date / Time No Known Allergies Allergy Verified 03/17/19 10:46 Date of admission: 03/16/19 11:10 Primary care physician: Jean Aguila MD Consults: 03/17/19 11:08 Consult to Psychiatry [CONS] Routine Consulting Provider: Psychiatry Samira Reason consult: Other Other reason and/or additional details: anxiety and numerous somatic complaints without organic disorder Anticipated date of discharge: 03/18/19 - Constitutional Vitals: Temp Pulse Resp BP Pulse Ox 98.1 F 62 16 118/68 94 03/18/19 11:42 03/18/19 11:42 03/18/19 11:42 03/18/19 11:42 03/18/19 11:42 General appearance: Present: A&O X 3 Exam: PHYSICAL EXAMINATION: GENERAL APPEARANCE: The patient is alert, oriented and in no acute distress. HEENT: Head is normocephalic. The sinuses are nontender. Pupils are equal and reactive. The nares are patent. Oropharynx clear without lesions. NECK: Supple without lymphadenopathy. HEART: Regular rate and rhythm. LUNGS: No crackles or wheezes are heard. ABDOMEN: Soft, nontender, nondistended with good bowel sounds heard. Inguinal area is normal. EXTREMITIES: Without cyanosis, clubbing or edema. NEUROLOGICAL: Gross nonfocal. SKIN: Warm and dry without any rash. - Patient Status Disposition: Home, Self-Care Condition: Fair Functional capacity at discharge: independent ambulation Overall status at discharge: patient is progressing back to baseline - Discharge Instructions Follow Up With: Jean Aguila MD [Primary Care Provider] - - Diet and Activity Activity: increase activity as tolerated Diet: advance to your usual diet
== END 2019-03-18 15:30 | disposition home or self-care (01) ==
LOC: 3BNU 07:13 → EMEROOARM 07:13 → 3BNU 12:10
PROVIDERS: ADMIT Internal Medicine Nephrology; ATTEND Internal Medicine Nephrology